=== PATIENT | female | born 1970 | race Caucasian/White ===

== ENCOUNTER 2025-04-21 10:07 | Emergency (ER) | payer MEDICAID, SELFPAY ==
[2025-04-21] VITALS (13 sets, daily range): BP systolic 130–224; BP diastolic 84–125; PULSE 71–107; RESP 9–26; TEMP 36.7–36.8; O2SAT 96–100; BMI 28.3
--- NOTE | 2025-04-21 10:10 | ECG_ITS ---
APPROVED REPORT Exam: Resting ECG HR:98 bpm ECG Measurements Heart Rate 98 AXES MA 174 P 81 QRSd 88 QRS 70 QT 338 T 61 QTc 393 Conclusion SINUS RHYTHM POSSIBLE RIGHT ATRIAL ENLARGEMENT [0.25mV P-WAVE] NONSPECIFIC T-WAVE ABNORMALITY BORDERLINE ECG No STEMI Electronically signed by : NORMA FRAUSTO, 04/22/2025 06:39:01
--- NOTE | 2025-04-21 10:14 | XR_ITS ---
FINAL REPORT CLINICAL HISTORY: SOA and CP FINDINGS: SINGLE VIEW CHEST The heart is normal in size. Lordotic positioning was obtained. The mediastinum is unremarkable. The lungs are clear. There is no pneumothorax. IMPRESSION: No acute process. Reviewed, Interpreted and Dictated by Dario Nowak MD Transcribed by Genesis Lares Authenticated and [facility]
--- NOTE | 2025-04-21 10:19 | ED_ITS ---
<Statement entered by Kwan Benavidez MD - 04/21/25 15:45> On repeat interview with this patient she reported that she felt confident the source of her pain was her left shoulder. She endorsed no chest pain, no neck stiffness, no headache, no infectious symptoms. She had minimal pain with palpation of the shoulder but significant pain with range of motion of the left shoulder. Range of motion of the left shoulder elicited notable crepitus. Patient reported a long history of reduced range of motion of the shoulder. Given the largely negative laboratory and imaging workup I think it is most likely the patient is suffering from osteoarthritis and mild adhesive capsulitis. We feel comfortable with discharge to follow-up with orthopedic surgery and additionally we provided a referral for a new primary care provider. Review of the patient's laboratory results shows pseudohyponatremia, and hyperglycemia. The patient is currently an insulin-dependent diabetic and has not been able to see her primary care provider in several months. The patient said that she felt comfortable with her ability to establish with a new primary care provider and verbalized understanding of return precautions. I consulted the BRANDI, and we discussed the complexity of the problems being addressed. I approved the treatment and management plan for this patient's care in the emergency department, thus performing a substantial portion of the medical decision making. Will MD Reema Discharge Plan Disposition Patient Disposition: Home, Self-Care Condition: Good Prescriptions Prescriptions: No Action No Known Home Medications Referrals Follow up/Referrals: ProviderAnju MD [Referring, Medical] - See instructions Shyam Luu MD [Staff Physician, Cardiology] - See instructions Kwame Castro APRN [Primary Care Provider, Medical] - See instructions Activity Restrictions/Add. Instructions Additional Instructions/Restrictions: Please return to the emergency department with any worsening signs or symptoms, please follow-up with your PCP and electro mechanical engineer in the upcoming days/weeks. Please continue take all medication as prescribed. Clinical Impressions Clinical Impression: Atypical chest pain Instructions Patient Instructions: DI for Atypical Chest Pain, DI for Chest Pain Print Language Print Language: Gibralt[place] Discharge ED Provider: Kwan Benavidez [facility] General Chief Complaint: Chest Pain Stated Complaint: CP Time Seen by Provider: 04/21/25 10:08 Mode of Arrival: Ambulatory Source of Information: Patient Description of Symptoms (Recalled from ER Triage Doc. by RN): Patient states about 0800 this morning she started having pain in her chest, neck and back. Patient states that she took 3x 325 mg aspirin when the pain started. Denies any previous cardiac problems. History of Present Illness HPI narrative: 55-year-old female presents the emergency department with chest pain that is located right substernally, with some radiation into the back and down the right arm, and extension up into the neck , the start around 8 AM this morning, currently a 5 out of 10, and at maximal was a 5 out of 10 this morning, patient claims she took times three 325 mg p.o. aspirin with little to no relief of her symptomatology, she denies any fever chills injury or trauma per history, admits to some shortness of breath, denies any nausea vomiting constipation diarrhea no real abdominal pain, no urinary type symptomatology, no constipation diarrhea, no melena hematochezia no hematemesis, initial triage vitals are notable for hypertensive blood pressure at over 200 systolic, as well as tachycardia to 107 bpm, SpO2 within normal limits, patient is a current everyday smoker, denies any other alcohol drug use, patient has no other real relevant past medical history takes no other medications at home, has remote history of what sounds like trauma as a child where she sustained a liver laceration and underwent multiple surgeries, patient was previously on metoprolol, however she states that she is unsure , while she was on this medication, however she is no longer taking this medication. Please note that above description of symptoms, in this electronic medical record under categorization of recalled from ER triage doctor by RN are reflective of an initial nursing assessment, however, is not reflective of my full history and physical exam that was personally taken and clarified. Consequentially, this preceding description of symptoms, which may include the patient's categorized chief complaint in the EMR, do not reflect my personal clinical impression, and the ultimate description of history of present illness and patient stated complaints should be deferred to this section of the note. Unless stated otherwise or congruent with this section of the note, additional signs, symptoms, or incongruence should be interpreted as inaccurate with my clinical impression. Related Data Home Medications ?Medication ?Instructions ?Recorded ?Confirmed No Known Home Medications 01/22/1806/03 Allergies Allergy/AdvReac Type Severity Reaction Status Date / Time No Known Allergies Allergy Verified 04/21/25 10:16 [facility] Disclaimer: The information contained in this section may have been updated after the patient was seen, as this information can be updated by other users. Social History Smoking Status: Current every day smoker alcohol intake: never current occupational status: other Travel in the last 8 weeks?: None ROS Obtained: Yes All systems reviewed & no additional complaints except as documented Physical Exam General General appearance: alert and in no apparent distress Head Head exam: atraumatic and normocephalic Eye Eye exam: Present normal appearance, PERRL and EOMI Neck Neck exam: Present full ROM; Absent meningismus Chest Chest inspection: Present normal inspection Respiratory Respiratory exam: Absent respiratory distress, wheezes, stridor, accessory muscle use or prolonged expiratory phase Cardiovascular Cardiovascular exam: Present normal rhythm, tachycardia and other (Pulses equal and symmetric in bilateral upper and lower extremities) Abdominal Exam Abdominal exam: Absent distention, tenderness, guarding or rebound Extremities Exam Extremities exam: Absent edema Neurological Exam Neurological exam: Present alert Psychiatric Psychiatric exam: Present normal affect Skin Skin exam: Present warm and dry HEART Score HEART Score HEART Score assessment performed?: Yes HEART Score: 2 Critical Care Critical Care Time Critical Care Time: No Medical Decision Making Medical Records Medical records reviewed: Yes I reviewed the patient's medical records. Bryan Inquiry Pt receiving controlled substance: Yes Bryan was queried for this patient: No Reason not queried -: Emergent pt cond-no time Risks and benefits of using a controlled substance: were discussed with pt by me Vital Signs Vital Signs: 04/21/25 10:09 04/21/25 10:15 04/21/25 10:33 Temperature 98.2 F Temperature Source Oral Pulse Rate 88 92 H Pulse Rate [Right Brachial] 107 H Respiratory Rate 18 Blood Pressure 206/114 H 207/120 H Blood Pressure [Right Arm] 224/124 H Blood Pressure Mean [Right Arm] 157 Blood Pressure Source [Right Arm] Automatic Cuff Blood Pressure Position [Right Arm] Sitting 02 Sat by Pulse Oximetry 98 99 98 Oxygen Delivery Method Room Air 04/21/25 10:35 04/21/25 10:38 04/21/25 10:45 Temperature Temperature Source Pulse Rate 94 H 100 H Pulse Rate [Right Brachial] Respiratory Rate 26 H 9 L Blood Pressure 192/125 H 179/104 H 177/104 H Blood Pressure [Right Arm] Blood Pressure Mean [Right Arm] Blood Pressure Source [Right Arm] Blood Pressure Position [Right Arm] 02 Sat by Pulse Oximetry 99 96 Oxygen Delivery Method 04/21/25 11:15 04/21/25 11:30 04/21/25 11:45 Temperature Temperature Source Pulse Rate 71 Pulse Rate [Right Brachial] Respiratory Rate 12 12 12 Blood Pressure 178/101 H 166/102 H 163/90 H Blood Pressure [Right Arm] Blood Pressure Mean [Right Arm] Blood Pressure Source [Right Arm] Blood Pressure Position [Right Arm] 02 Sat by Pulse Oximetry 100 Oxygen Delivery Method 04/21/25 12:00 04/21/25 12:15 04/21/25 12:30 Temperature Temperature Source Pulse Rate 71 Pulse Rate [Right Brachial] Respiratory Rate 15 12 13 Blood Pressure 168/101 H 156/89 H 168/102 H Blood Pressure [Right Arm] Blood Pressure Mean [Right Arm] Blood Pressure Source [Right Arm] Blood Pressure Position [Right Arm] 02 Sat by Pulse Oximetry 98 Oxygen Delivery Method Lab Data Lab results reviewed: Yes I reviewed the patient's lab results. Labs: Lab Results 04/21/25 10:12: WBC 9.4, RBC 5.31, Hgb 15.8, Hct 47.7 H, MCV 89.8, MCH 29.8, MCHC 33.1, RDW 13.2, Plt Count 397, MPV 9.0, Neut % (Auto) 63.5, Lymph % (Auto) 25.7, Baxter % (Auto) 6.9, Eos % (Auto) 2.7, Baso % (Auto) 0.8, Neut # (Auto) 6.0, Lymph # (Auto) 2.4, Baxter # (Auto) 0.7, Eos # (Auto) 0.3, Baso # (Auto) 0.1, PT 10.1, INR 0.90, Sodium 139, Potassium 4.3, Chloride 104, Carbon Dioxide 25, Anion Gap 14.3, BUN 13, Creatinine 0.80, Estimated Creat Clear 93, Estimated GFR 74, Est GFR ( Amer) 90, Glucose 99, Calcium 10.1, Magnesium 2.3, Total Bilirubin 0.4, AST 33, ALT 16, Alkaline Phosphatase 79, Troponin I < 0.01, N T-Pro-B Natriuret Pep 650 H, Total Protein 8.6 H, Albumin 4.9, Globulin 3.7 H, Albumin/Globulin Ratio 1.3, Lipase 117, HCV Ab IONA w/Rflx PCR Qn Negative, HIV Ag/Ab Combo Qual Negative 04/21/25 13:05: Troponin I < 0.01 04/21/25 10:12 04/21/25 10:12 Response Orders (Tests/Meds): ED MEDICATIONS Generic Name Dose Route Start Last Admin Trade Name Freq PRN Reason Stop Dose Admin Nitroglycerin 0.4 mg 04/21/25 10:18 04/21/25 10:33 Nitroglycerin 0.4mg Sl Tablet SL 05/21/25 10:17 0.4 mg Q5MINP PRN Administration Chest Pain Discontinued Medications Generic Name Dose Route Start Last Admin Trade Name Freq PRN Reason Stop Dose Admin Iopamidol 80 ml 04/21/25 11:02 04/21/25 11:03 Iopamidol-370 (76%);100ml Bottle IV 04/21/25 11:03 80 ml ONCE ONE Administration Morphine Sulfate 4 mg 04/21/25 10:18 04/21/25 10:40 Morphine 4mg/Ml Syringe IV 04/21/25 10:19 4 mg ONCE ONE Administration Ondansetron HCl 4 mg 04/21/25 10:18 04/21/25 10:34 Ondansetron 4mg/2ml Vial IV 04/21/25 10:19 4 mg ONCE ONE Administration Sodium Chloride 50 ml 04/21/25 11:02 04/21/25 11:03 0.9 % Sodium Chloride 50 Ml Vial IV 04/21/25 11:03 50 ml ONCE ONE Administration Sodium Chloride 10 ml 04/21/25 11:02 04/21/25 11:03 Sodium Chloride 0.9% 10ml Syr (Rad Only) IV 04/21/25 11:03 10 ml ONCE ONE Administration ORDERS Category Date Time Status CTA Chest [CT angio chest - dissection] Stat Cat Scan 04/21/25 10:26 Completed XR chest portable Stat Exams 04/21/25 10:14 Completed Complete Blood Count Auto Diff Stat Lab 04/21/25 10:12 Completed Comprehensive Metabolic Panel Stat Lab 04/21/25 10:12 Completed HIV Combo Stat Lab 04/21/25 10:12 Completed Hepatitis C Ab Qual. W/ RFX Stat Lab 04/21/25 10:12 Completed Lipase Stat Lab 04/21/25 10:12 Completed Magnesium Stat Lab 04/21/25 10:12 Completed NT Pro Brain Natriuretic Pep. Stat Lab 04/21/25 10:12 Completed PT INR [Prothrombin Time INR] Stat Lab 04/21/25 10:12 Completed Troponin I Q3H Lab 04/21/25 13:05 Completed Troponin I Q3H Lab 04/21/25 16:15 Ordered Troponin I Stat Lab 04/21/25 10:12 Completed MDM Narrative Medical Decision Narrative: 55-year-old female presents emergency department with chest pain, differential diagnose include but not limited to, PE, aortic dissection, cardiac arrhythmia, electrolyte disturbance, ACS, costochondritis, panic attack, anxiety reaction, pneumothorax among others. I discussed this patient's case with the attending physician Dr. Benavidez he saw and examined the patient as well. Will obtain basic laboratory studies, proBNP, PT/INR, troponin, EKG, CXR, will give 0.4 sublingual nitroglycerin, lipase, will give 4 mg IV morphine and 4 mg Zofran for pain and nausea, will obtain CTA chest with without contrast. I reviewed the patient's chest x-ray along with corresponding radiologic report, no acute process. CBC is unremarkable CMP is unremarkable, initial troponin is less than 0.01, proBNP is mildly elevated at 650. Coags within normal limits Lipase within normal limits I reviewed the patient's CTA chest with and without contrast along with the corresponding radiologic report, no evidence for PE or dissection on this exam, mild changes of central lobar emphysema. Repeat troponin is within normal limits at less than 0.01, repeat examination of the patient at approximately 1:45 PM, patient states she is currently chest pain-free, hemodynamically she has improved, blood pressures improved to within normal limits, no tachycardia, no tachypnea, heart score of 2, patient is clear to be discharged home to self-care, cardiology and PCP follow-up, patient states she has PCP follow-up next Saturday advised her to keep this appointment, continue take all medication as prescribed. Patient voiced understanding and agreement Contreet plan/discharge plan. Strict ED return precaution were given.
[2025-04-21 10:22] LABS: Hematocrit 47.7 % (37.0-47.0); Hemoglobin 15.8 g/dL (12.2-16.2); Immature Granulocytes % 0.4 %; Mean Corpuscular HGB Conc 33.1 g/dL (31.8-35.4); Mean Corpuscular Hemoglobin 29.8 pg (27.0-31.2); Mean Corpuscular Volume 89.8 fl (81-99); Nucleated Red Blood Cells % 0 %; Platelet Count 397 K/mm3 (142-424); Red Blood Count 5.31 M/mm3 (4.20-5.40); Red Cell Distribution Width-SD 43.6 fL; White Blood Count 9.4 K/mm3 (4.8-10.8)
--- NOTE | 2025-04-21 10:26 | CT_ITS ---
FINAL REPORT TECHNIQUE: Postcontrast axial images of the chest were performed in a CTA protocol. This study was performed with techniques to keep radiation doses as low as reasonably achievable, (ALARA). Individualized dose reduction technique using automated exposure control or adjustment of mA and/or kV according to the patient's size were employed. CLINICAL HISTORY: Hypertension, chest pain rating to the back FINDINGS: The heart is normal in size. No adenopathy is identified. No pleural or pericardial effusion is identified. The thoracic aorta is normal in caliber with no focal aneurysm or dissection identified. There is no filling defect to suggest pulmonary embolism. There are mild changes of centrilobular emphysema. No lung infiltrate or mass is identified. The images of the upper abdomen are unremarkable. A cystic structure is noted in the medial right breast measuring 1.8 cm in diameter, likely benign. IMPRESSION: No evidence for PE or dissection on this exam. Mild changes of centrilobular emphysema. Reviewed, Interpreted and Dictated by Dario Nowak MD Transcribed by Lisset Boyle Authenticated and [facility]
[2025-04-21 10:33] LABS: Alanine Aminotransferase 16 U/L (12-78); Albumin Level 4.9 g/dl (3.5-5.0); Albumin/Globulin Ratio 1.3 (1.1-1.8); Alkaline Phosphatase 79 U/L (38-126); Anion Gap 14.3 mEq/L (5-15); Aspartate Amino Transferase 33 U/L (14-36); Bilirubin,Total 0.4 mg/dl (0.2-1.3); Blood Urea Nitrogen 13 mg/dl (7-17); Calcium 10.1 mg/dl (8.4-10.2); Carbon Dioxide 25 mmol/L (22.0-30.0); Chloride 104 mmol/L (98-107); Creatinine Clearance Estimated 93 mL/min (50-200); Creatinine,Serum 0.80 mg/dl (0.52-1.04); Estimated Glomerular Filt Rate 74 ml/min (>60); GFR (African American) 90 ML/MIN (>60); Globulin 3.7 g/dL (1.3-3.2); Glucose 99 mg/dl (74-100); Potassium 4.3 mmoL/L (3.5-5.1); Sodium 139 mmol/L (136-145); Total Protein,Serum 8.6 g/dl (6.3-8.2)
[2025-04-21] MEDS: NITROGLYCERIN 0.4MG SL TABLET 0.4 MG SL (10:33)
[2025-04-21 10:34] LABS: Magnesium 2.3 mg/dl (1.6-2.3)
[2025-04-21] MEDS: ONDANSETRON 4MG/2ML VIAL 4 MG IV (10:34)
[2025-04-21] MEDS: MORPHINE 4MG/ML SYRINGE 4 MG IV (10:40)
[2025-04-21 10:44] LABS: NT Pro Brain Natriuretic Pep. 650 pg/mL (0-125)
[2025-04-21 10:51] LABS: INR 0.90 (0.9-1.1); Prothrombin Time 10.1 seconds (10.1-12.5); Troponin I < 0.01 ng/ml (0.00-0.034)
[2025-04-21] MEDS: IOPAMIDOL-370 (76%);100ML BOTTLE 80 ML IV (11:03)
[2025-04-21] MEDS: SODIUM CHLORIDE 0.9% 10ML SYR (RAD ONLY) 10 ML IV (11:03)
[2025-04-21] MEDS: 0.9 % SODIUM CHLORIDE 50 ML VIAL IV (11:03)
[2025-04-21 11:07] LABS: Lipase 117 U/L (23-300)
[2025-04-21 11:33] LABS: Hepatitis C Ab Qual. W/ RFX NEGATIVE (Negative)
[2025-04-21 13:47] LABS: Troponin I < 0.01 ng/ml (0.00-0.034)
== END 2025-04-21 14:12 | disposition home or self-care (01) ==
PROVIDERS: Physician Assistant; Emergency Provider Student in an Organized Health Care Education/Training Program; PCP Nurse Practitioner Family
DX: R07.89 Other chest pain (principal); F17.210 Nicotine dependence, cigarettes, uncomplicated
CPT/HCPCS: 71045; 71275; 80053; 83690; 83735; 83880; 84484; 85025; 85610; 86803; 87389; 93005; 96374; 96375; 99285; J2270; J2405; Q9967

== ENCOUNTER 2025-04-26 09:38 | Emergency (ER) | payer MEDICAID, SELFPAY ==
[2025-04-26] VITALS (10 sets, daily range): BP systolic 144–222; BP diastolic 85–107; PULSE 71–105; RESP 14–18; TEMP 36.7–36.8; O2SAT 99; BMI 28.3
--- NOTE | 2025-04-26 | ECG_ITS ---
APPROVED REPORT Exam: Resting ECG HR:89 bpm ECG Measurements Heart Rate 89 AXES MD 169 P 79 QRSd 88 QRS 71 QT 334 T 41 QTc 381 Conclusion SINUS RHYTHM POSSIBLE RIGHT ATRIAL ENLARGEMENT [0.25mV P-WAVE] NONSPECIFIC T-WAVE ABNORMALITY BORDERLINE ECG UNCONFIRMED REPORT Electronically signed by : GAGE GUZMAN, 04/26/2025 23:45:11
--- NOTE | 2025-04-26 09:48 | PC.NURSE ---
DR KHAN AT BEDSIDE
--- NOTE | 2025-04-26 09:53 | CT_ITS ---
FINAL REPORT TECHNIQUE: Postcontrast axial images of the chest were performed in a CTA protocol. This study was performed with techniques to keep radiation doses as low as reasonably achievable, (ALARA). Individualized dose reduction technique using automated exposure control or adjustment of mA and/or kV according to the patient's size were employed. CLINICAL HISTORY: HTN, chest pain, right arm tingling COMPARISON: 04/21/2025 FINDINGS: The heart is normal in size. No adenopathy is identified. No pleural or pericardial effusion is identified. The thoracic aorta is normal in caliber with no focal aneurysm or dissection identified. There is no filling defect to suggest pulmonary embolism. No lung infiltrate or mass is identified. There are changes of emphysema. A cystic mass is seen in the right upper chest wall which is likely a sebaceous cyst, similar to prior exam. The images of the upper abdomen are unremarkable. IMPRESSION: No evidence for PE on this exam. Changes of emphysema. Reviewed, Interpreted and Dictated by Conner Patel MD Transcribed by Lisset Boyle Authenticated and [facility]
--- NOTE | 2025-04-26 09:53 | CT_ITS ---
FINAL REPORT TECHNIQUE: Noncontrast exam This study was performed with techniques to keep radiation doses as low as reasonably achievable, (ALARA). Individualized dose reduction techniques using automated exposure control or adjustment of mA and/or kV according to the patient''s size were employed. CLINICAL HISTORY: Right arm tingling, headache, HTN FINDINGS: No abnormal density is seen. Ventricles are normal. There is no hemorrhage. No mass effect is seen. Bone windows show no evidence of fracture. IMPRESSION: No acute findings Reviewed, Interpreted and Dictated by Conner Patel MD Transcribed by Lisset Boyle Authenticated and . [facility]
--- NOTE | 2025-04-26 09:53 | CT_ITS ---
FINAL REPORT CLINICAL HISTORY: Right arm tingling, headache, HTN FINDINGS: CTA NECK Thin section axial CT with contrast with multiplanar reconstruction NASCET criteria and technique was utilized during interpretation. Aortic arch: Arch shows no significant narrowing. Great vessel origins are widely patent . There is mild calcified plaque at the carotid bifurcations bilaterally. Right carotid: No significant stenosis is seen of the cervical common or internal carotid artery . Left carotid: No significant stenosis is seen of the cervical common or internal carotid artery . Vertebrals: Vertebral arteries are codominant.. No significant stenosis is present . IMPRESSION: No significant stenosis or occlusion. Reviewed, Interpreted and Dictated by Conner Patel MD Transcribed by Lisset Boyle Authenticated and [facility]
--- NOTE | 2025-04-26 09:53 | CT_ITS ---
FINAL REPORT CLINICAL HISTORY: Right arm tingling, headache, HTN FINDINGS: CTA HEAD TECHNIQUE: Thin section axial CT with contrast with 3D MIP reconstruction This study was performed with techniques to keep radiation doses as low as reasonably achievable, (ALARA). Individualized dose reduction techniques using automated exposure control or adjustment of mA and/or kV according to the patient''s size were employed. FINDINGS: No aneurysm is seen. Major intracranial vessels are patent without significant stenosis. . There is persistent origin of the left HANGER OFF. IMPRESSION: Unremarkable Reviewed, Interpreted and Dictated by Conner Patel MD Transcribed by Lisset Boyle Authenticated and [facility]
[2025-04-26 10:00] LABS: Hematocrit 45.6 % (37.0-47.0); Hemoglobin 15.2 g/dL (12.2-16.2); Immature Granulocytes % 0.3 %; Mean Corpuscular HGB Conc 33.3 g/dL (31.8-35.4); Mean Corpuscular Hemoglobin 30.1 pg (27.0-31.2); Mean Corpuscular Volume 90.3 fl (81-99); Nucleated Red Blood Cells % 0 %; Platelet Count 385 K/mm3 (142-424); Red Blood Count 5.05 M/mm3 (4.20-5.40); Red Cell Distribution Width-SD 44.2 fL; White Blood Count 7.7 K/mm3 (4.8-10.8)
[2025-04-26] MEDS: LABETALOL 20MG/4ML SYRINGE 20 MG IV (10:04)
[2025-04-26 10:06] LABS: Albumin Level 4.6 g/dl (3.5-5.0); Chloride 102 mmol/L (98-107); Potassium 4.0 mmoL/L (3.5-5.1); Sodium 138 mmol/L (136-145)
--- NOTE | 2025-04-26 10:06 | HMH.EDGENADL ---
Discharge Plan Disposition Patient Disposition: Home, Self-Care Prescriptions Prescriptions: No Action No Known Home Medications Referrals Follow up/Referrals: Kwame Castro APRN [Primary Care Provider, Medical] - See instructions Activity Restrictions/Add. Instructions Additional Instructions/Restrictions: You have an appointment at [address] Olivarez's office. Please attend this appointment is important for you to get started on blood pressure medication to control your blood pressure better. If your blood pressure continues to remain elevated, you are at increased risk of strokes and heart attacks. If you develop any new or worsening symptoms, or if you become concerned for your health for any reason, return to the emergency department for evaluation. Clinical Impressions Clinical Impression: Hypertension, Tingling of right upper extremity, Headache Print Language Print Language: Chinese Discharge ED Provider: Fred Chowdary Adult HPI General Chief complaint: Headache Stated complaint: arm tingling, BP 199/122 Time Seen by Provider: 04/26/25 09:45 Mode of Arrival: Ambulatory Source of Information: Patient Description of Symptoms (Recalled from ER Triage Doc. by RN): PT REPORTS ELEVATED BLOOD PRESSURE THIS AM. WOKE WITH RIGHT ARM TINGLING AND SLIGHT HEADACHE. RECENT ED VISIT FOR ELEVATED BP AND CHEST PAIN. HAD APPT AT 1000 TO FOLLOW-UP AND DISCUSS MEDS. History of Present Illness HPI narrative: Lamar Warren is a 55-year-old female with previously diagnosed hypertension, not currently on medications, who presents to the emergency department for complaints of right arm tingling, headache and intermittent chest tightness. Patient states over last week, she has had these symptoms. She describes headache as along the right side of her head and down into her right neck. She states that her entire right arm is tingling. She states that her blood pressure was elevated when she was evaluated here on the sixth and she was supposed to establish care with her primary care physician at 10:00 this morning, however she continued to have symptoms and had blood pressures continually elevated at over 200 systolic and was instructed to come to the emergency department for management. She denies any current chest pain. She states that she has been taking daily aspirin's. She denies any abdominal pain, vomiting. She states that she is otherwise healthy. She does smoke cigarettes. She states that she was previously on metoprolol for high blood pressure, however is not seen a doctor since the COVID pandemic and has not been taking any medications for it since then. Related Data Home Medications ?Medication ?Instructions ?Recorded ?Confirmed No Known Home Medications 01/22/18 04/26/25 Allergies Allergy/AdvReac Type Severity Reaction Status Date / Time No Known Allergies Allergy Verified 04/21/25 10:16 [facility] Disclaimer: The information contained in this section may have been updated after the patient was seen, as this information can be updated by other users. Social History (Updated 04/21/25 @ 13:53 by EDDIE Bauer) Smoking Status: Current every day smoker alcohol intake: never current occupational status: other Travel in the last 8 weeks?: None ROS Obtained: Yes Systems reviewed as appropriate & no additional complaints except as documented Physical Exam General General appearance: alert, in no apparent distress and anxious Head Head exam: atraumatic Eye Eye exam: Present normal appearance and PERRL ENT ENT exam: Present normal external ear exam Neck Neck exam: Present full ROM Chest Chest inspection: Present symmetric chest wall rise Respiratory Respiratory exam: Present normal lung sounds bilaterally; Absent respiratory distress, wheezes or stridor Cardiovascular Cardiovascular exam: Present regular rate and normal rhythm Abdominal Exam Abdominal exam: Present soft; Absent distention, tenderness or guarding Extremities Exam Extremities exam: Present normal inspection and other (2+ bounding radial pulses bilaterally) Back Exam Back exam: Present normal inspection Neurological Exam Neurological exam: Present alert, oriented X3, CN II-XII intact and other (Full strength and sensation to bilateral upper extremities.); Absent motor sensory deficit Psychiatric Psychiatric exam: Present normal affect Skin Skin exam: Present warm and dry Medical Decision Making Medical Records Screening: Per USPSTF and CDC recommendations, given the prevalence of disease in our region, it is our hospital?s policy to screen for HIV and viral Hepatitis for all patients aged 18 and over and those with ongoing risk factors. Bryan Inquiry Pt receiving controlled substance: No Vital Signs: 04/26/25 09:39 04/26/25 09:58 04/26/25 10:00 Temperature 98.3 F Temperature Source Oral Pulse Rate Pulse Rate [Apical] 105 H Respiratory Rate 18 Blood Pressure 178/101 H 198/107 H Blood Pressure [Right Arm] 222/88 H Blood Pressure Mean 140 136 Blood Pressure Mean [Right Arm] 132 Blood Pressure Source [Right Arm] Manual Cuff/ Auscultation Blood Pressure Position [Right Arm] Sitting 02 Sat by Pulse Oximetry 99 Oxygen Delivery Method Room Air 04/26/25 10:04 04/26/25 10:10 04/26/25 10:43 Temperature Temperature Source Pulse Rate 79 Pulse Rate [Apical] Respiratory Rate 14 Blood Pressure 198/107 H 173/99 H 187/101 H Blood Pressure [Right Arm] Blood Pressure Mean 134 Blood Pressure Mean [Right Arm] Blood Pressure Source [Right Arm] Blood Pressure Position [Right Arm] 02 Sat by Pulse Oximetry 99 Oxygen Delivery Method 04/26/25 11:01 04/26/25 11:31 Temperature Temperature Source Pulse Rate 71 72 Pulse Rate [Apical] Respiratory Rate 14 16 Blood Pressure 162/91 H 157/85 H Blood Pressure [Right Arm] Blood Pressure Mean Blood Pressure Mean [Right Arm] Blood Pressure Source [Right Arm] Blood Pressure Position [Right Arm] 02 Sat by Pulse Oximetry 99 99 Oxygen Delivery Method Lab Data Lab Results 04/26/25 09:46: WBC 7.7, RBC 5.05, Hgb 15.2, Hct 45.6, MCV 90.3, MCH 30.1, MCHC 33.3, RDW 13.3, Plt Count 385, MPV 8.9, Neut % (Auto) 61.0, Lymph % (Auto) 26.8, Glades % (Auto) 7.9, Eos % (Auto) 3.3, Baso % (Auto) 0.7, Neut # (Auto) 4.7, Lymph # (Auto) 2.1, Glades # (Auto) 0.6, Eos # (Auto) 0.3, Baso # (Auto) 0.1, Sodium 138, Potassium 4.0, Chloride 102, Carbon Dioxide 29, Anion Gap 11.0, BUN 15, Creatinine 0.80, Estimated Creat Clear 93, Estimated GFR 74, Est GFR ( Amer) 90, Glucose 95, Calcium 9.4, Total Bilirubin 0.6, AST 30, ALT 15, Alkaline Phosphatase 78, Troponin I < 0.01, NT-Pro-B Natriuret Pep 599 H, Total Protein 7.9, Albumin 4.6, Globulin 3.3 H, Albumin/Globulin Ratio 1.4, TSH 3.15, Free T4 1.35 04/26/25 10:40: Urine Color Yellow, Urine Appearance Clear, Urine pH 7.5, Ur Specific Bowbells 1.010, Urine Protein Negative, Urine Glucose (UA) Negative, Urine Ketones Negative, Urine Blood Negative, Urine Nitrate Negative, Urine Bilirubin Negative, Urine Urobilinogen 0.2, Ur Leukocyte Esterase Negative, Urine RBC None, Urine WBC None, Ur Squamous Epith Cells None, Urine Bacteria None 04/26/25 11:42: Troponin I < 0.01 04/26/25 09:46 04/26/25 09:46 Orders (Tests/Meds): ED MEDICATIONS Generic Name Dose Route Start Last Admin Trade Name Freq PRN Reason Stop Dose Admin Sodium Chloride 10 ml 04/26/25 10:36 04/26/25 10:38 Sodium Chloride 0.9% 10ml Syr (Rad Only) IV 05/26/25 10:35 10 ml NEEDED PRN Administration Maintain IV Site Discontinued Medications Generic Name Dose Route Start Last Admin Trade Name Freq PRN Reason Stop Dose Admin Iopamidol 160 ml 04/26/25 10:36 04/26/25 10:37 Iopamidol-370 (76%);100ml Bottle IV 04/26/25 10:37 160 ml ONCE ONE Administration Labetalol HCl 20 mg 04/26/25 10:15 04/26/25 10:04 Labetalol 20mg/4ml Syringe IV 04/26/25 10:16 20 mg ONCE ONE Administration Sodium Chloride 50 ml 04/26/25 10:36 04/26/25 10:37 0.9 % Sodium Chloride 50 Ml Vial IV 04/26/25 10:37 50 ml ONCE ONE Administration ORDERS Category Date Time Status CT angio chest - dissection Stat Cat Scan 04/26/25 09:[address] angio head Stat Cat Scan 04/26/25 09:[address] angio neck Stat Cat Scan 04/26/25 09:[address] head/brain wo con Stat Cat Scan 04/26/25 09:53 Completed BNP [NT Pro Brain Natriuretic Pep.] Stat Lab 04/26/25 09:46 Completed CBC w/Auto Diff [Complete Blood Count Auto Diff] Stat Lab 04/26/25 09:46 Completed CMP [Comprehensive Metabolic Panel] Stat Lab 04/26/25 09:46 Completed Free T4 (Free Thyroxine) Stat Lab 04/26/25 09:46 Completed TSH [Thyroid Stimulating Hormone] Stat Lab 04/26/25 09:46 Completed Troponin I Q3H Lab 04/26/25 11:42 Completed Troponin I Q3H Lab 04/26/25 16:00 Ordered Troponin I Stat Lab 04/26/25 09:46 Completed UA [Urinalysis and Microscopic] Stat Lab 04/26/25 10:40 Completed ECG Data Tracing #1: I reviewed this ECG and interpreted as documented below: Normal sinus rhythm. No ST elevation or depression Medical Decision Narrative: Lamar Warren is a 55-year-old female with previously diagnosed hypertension, not currently on medications, who presents to the emergency department for complaints of right arm tingling, headache and intermittent chest tightness. Patient states over last week, she has had these symptoms. She describes headache as along the right side of her head and down into her right neck. She states that her entire right arm is tingling. She states that her blood pressure was elevated when she was evaluated here on the sixth and she was supposed to establish care with her primary care physician at 10:00 this morning, however she continued to have symptoms and had blood pressures continually elevated at over 200 systolic and was instructed to come to the emergency department for management. She denies any current chest pain. She states that she has been taking daily aspirin's. She denies any abdominal pain, vomiting. She states that she is otherwise healthy. She does smoke cigarettes. She states that she was previously on metoprolol for high blood pressure, however is not seen a doctor since the COVID pandemic and has not been taking any medications for it since then. On arrival, patient is initially hypertensive with blood pressure 222/88, mildly tachycardic with a heart rate of 105, oxygen saturation 99% on room air. Afebrile. Physical exam, as stated above, revealed an anxious female in no distress. Nonfocal neuroexam. Cardiopulmonary exam is unremarkable. She does have bounding but equal bilateral radial pulses. Abdomen is soft, nontender nondistended. She does not appear edematous. Differential diagnosis includes, but is not limited to: Hypertensive emergency, ACS, aortic dissection, aortic aneurysm, stroke, uncontrolled hypertension, metabolic derangement, electrolyte derangement, among others. The most morbid conditions were considered and workup was based on these. Workup in the emergency department included: CTA chest dissection protocol, CTA head and neck, CT head without contrast, CBC, CMP, troponin, BNP, TSH, free T4, urinalysis, EKG. Patient was administered 20 mg of IV labetalol. EKG without evidence of ischemia. See interpretation above. Laboratory studies interpreted by me personally. No hematuria or other concerning findings on urinalysis. No acute findings. CT imaging also interpreted by me personally. No pulmonary embolism or aortic dissection or aneurysm. No other findings within CT of the chest. No significant stenosis, large vessel occlusion, aneurysm or dissection of the vessels of the neck or head. See final radiology report for details. After 20 mg of IV labetalol, patient's blood pressure is improved to 144/90. Heart rate remains stable. Given improvement in her blood pressure and symptoms, will try to arrange follow-up today with her primary care physician as she would likely need to be started on antihypertensive medications. We attempted to schedule an appointment today with Kwame's [facility] office, however they have no availabilities today. We reach out to Dr. Olivarez's office and will be following up with AISLINN Perez this afternoon at 1 PM. This was discussed with the patient and she was in agreement with this plan. Return precautions were given. All questions were answered. She was then discharged from the emergency department in stable condition. Critical Care Critical Care Time Critical Care Time: No
[2025-04-26 10:09] LABS: Alanine Aminotransferase 15 U/L (12-78); Albumin/Globulin Ratio 1.4 (1.1-1.8); Alkaline Phosphatase 78 U/L (38-126); Anion Gap 11.0 mEq/L (5-15); Aspartate Amino Transferase 30 U/L (14-36); Bilirubin,Total 0.6 mg/dl (0.2-1.3); Blood Urea Nitrogen 15 mg/dl (7-17); Calcium 9.4 mg/dl (8.4-10.2); Carbon Dioxide 29 mmol/L (22.0-30.0); Creatinine Clearance Estimated 93 mL/min (50-200); Creatinine,Serum 0.80 mg/dl (0.52-1.04); Estimated Glomerular Filt Rate 74 ml/min (>60); GFR (African American) 90 ML/MIN (>60); Globulin 3.3 g/dL (1.3-3.2); Glucose 95 mg/dl (74-100); Total Protein,Serum 7.9 g/dl (6.3-8.2)
[2025-04-26 10:19] LABS: NT Pro Brain Natriuretic Pep. 599 pg/mL (0-125)
--- NOTE | 2025-04-26 10:19 | PC.NURSE ---
PT TO CT
[2025-04-26 10:29] LABS: Troponin I < 0.01 ng/ml (0.00-0.034)
[2025-04-26] MEDS: IOPAMIDOL-370 (76%);100ML BOTTLE 160 ML IV (10:37)
[2025-04-26] MEDS: 0.9 % SODIUM CHLORIDE 50 ML VIAL IV (10:37)
[2025-04-26] MEDS: SODIUM CHLORIDE 0.9% 10ML SYR (RAD ONLY) 10 ML IV (10:38)
[2025-04-26 10:40] LABS: Thyroid Stimulating Hormone 3.15 uIU/mL (0.465-4.68)
[2025-04-26 10:42] LABS: Free T4 (Free Thyroxine) 1.35 ng/dl (0.78-2.19)
[2025-04-26 10:48] LABS: Microscopic, Urine URINE MICROSCOPIC (MICROSCOPIC)
[2025-04-26 10:54] LABS: Bilirubin,Urine Negative (Negative); Color,Urine YELLOW (Yellow); Glucose,Urine (UA) Negative (Negative); Ketones,Urine Negative (Negative); Leukocyte Esterase,Urine Negative (Negative); PH,Urine 7.5 (5.0-8.5); Protein,Urine Negative (Negative); Specific Gravity, Urine 1.010 (1.005-1.030); Urobilinogen,Urine 0.2 EU/dl (0.2)
--- NOTE | 2025-04-26 11:06 | PC.NURSE ---
ROUNDED ON PT, NO NEEDS AT THIS TIME. CALL LIGHT WITHIN REACH
--- NOTE | 2025-04-26 11:45 | PC.NURSE ---
REPEAT TROP SENT
[2025-04-26 12:22] LABS: Troponin I < 0.01 ng/ml (0.00-0.034)
--- NOTE | 2025-04-26 12:23 | PC.NURSE ---
APPT MADE FOR PT TO SEE AISLINN ABARCA AT 1300 TODAY
== END 2025-04-26 12:31 | disposition home or self-care (01) ==
PROVIDERS: Emergency Provider Student in an Organized Health Care Education/Training Program; PCP Nurse Practitioner Family
DX: R07.89 Other chest pain (principal); R51.9 Headache, unspecified; R20.2 Paresthesia of skin; I10 Essential (primary) hypertension; F17.210 Nicotine dependence, cigarettes, uncomplicated
CPT/HCPCS: 70450; 70496; 70498; 71275; 80053; 81001; 83880; 84439; 84443; 84484; 85025; 93005; 96374; 99285; J1920; Q9967

== ENCOUNTER 2025-05-18 12:49 | Outpatient (CLI) | payer MEDICAID, SELFPAY ==
--- NOTE | 2025-05-18 13:00 | CA_ITS ---
APPROVED REPORT EXAM: Comprehensive 2D, Doppler, and color-flow Echocardiogram Windows Deployment Technician: ELIF Neumann, RVS Ht: 5 ft 4 in Wt: 168lbs BSA: 1.82 BP: 140/88 mmHg Indications: Smoker, HTN , CP, Dyspnea, Tachycardia Echo Enhancing Agent Indication: no IV access 2D Dimensions Left Atrium 2.72 cm F: 2.7 - 3.8 LA Volume 37.50 mL LA Volume Index 20.60 mL/m2 (M/F) 16-34 M-Mode Dimensions RVDd 2.95 cm (0.9-2.6) LA Diam 3.75 cm (1.9-4.0) LVDd 4.53 cm (3.5-5.7) LVDs 3.15 cm (3.5-5.7) IVSd 0.86 cm (0.6-1.1) PWd 0.90 cm (0.6-1.1) EF (Teich) 58.50% EPSs 2.10 cm FS 30.80% EDV (Teich) 94.90 mL TAPSE 1.70 (<1.7) ESV (Teich) 39.40 mL LV Diastology E Decel Time 223 (160-240 msec) E/A Ratio 0.70 MED A' 14.30 cm/s LAT A' 11.90 cm/s Aortic Valve CRYSTAL Index 0.98 cm2/m2 AoV Peak Antoine. 178.0 (50-130 cm/s) AO Peak GR. 12.70 mmHg AO Mean GR. 6.30 (<5 mmHg) AO VTI 29.0 (18-25 cm) CRYSTAL (VTI) 1.83 (2.5-4.5 cm2) Mitral Valve MV A Velocity 80.0 (40-130 cm/s) E/A Ratio 0.70 Left Ventricle The left ventricle is normal size. Left ventricular systolic function is low-normal. There is increased left ventricular wall thickness. There is mild hypokinesis of the basal inferoseptal LV wall. Transmitral Doppler flow pattern suggests impaired LV relaxation. LVEF is 50%. Right Ventricle The right ventricle is normal size. The right ventricular systolic function is normal. Atria The left atrium size is normal. The right atrium size is normal. There is no color Doppler evidence of interatrial shunt. Aortic Valve The aortic valve is mildly thickened. There is no hemodynamically significant aortic valvular stenosis. Trace aortic regurgitation is present. Mitral Valve The mitral valve is normal in structure. No evidence of mitral valve stenosis. Trace mitral regurgitation is present. Tricuspid Valve The tricuspid valve leaflets are thin and pliable. Trace tricuspid regurgitation. There is insufficient TR jet to estimate RVSP. Pulmonic Valve The pulmonary valve is grossly normal in structure. Trace pulmonic valve regurgitation is present. Great Vessels The aortic root is normal in size. IVC is normal in size and collapses >50% with inspiration. Pericardium There is no pericardial effusion. Other Information Study Quality: Fair Conclusion Low-normal LV systolic function (LVEF 50%). Mild hypokinesis of the basal inferoseptal LV wall. No significant valvular stenosis or regurgitation. Electronically signed by : Nemo Dotson MD 05/19/2025 00:04:21
== END 2025-05-18 23:59 | disposition home or self-care (01) ==
LOC: RT 12:50
PROVIDERS: PCP Nurse Practitioner Family; Visit Provider Nurse Practitioner Family
DX: I10 Essential (primary) hypertension (principal); R00.0 Tachycardia, unspecified; R06.00 Dyspnea, unspecified; R07.9 Chest pain, unspecified; F17.200 Nicotine dependence, unspecified, uncomplicated; R93.1 Abnormal findings on diagnostic imaging of heart and coronary circulation
CPT/HCPCS: 93306

== ENCOUNTER 2025-05-19 10:51 | Outpatient (CLI) | payer MEDICAID, SELFPAY ==
[2025-05-19 12:27] LABS: Albumin Level 4.7 g/dl (3.5-5.0)
[2025-05-19 12:29] LABS: Bilirubin,Unconjugated 0.3 mg/dL (0.0-1.1)
[2025-05-19 12:30] LABS: Alanine Aminotransferase 14 U/L (12-78); Alkaline Phosphatase 70 U/L (38-126); Aspartate Amino Transferase 26 U/L (14-36); Bilirubin,Direct 0.1 mg/dl (0.0-0.4); Bilirubin,Indirect 0.3 mg/dL (0.0-0.9); Bilirubin,Total 0.4 mg/dl (0.2-1.3); Cholesterol 295 mg/dl (140-200); HDL Cholesterol 62 mg/dl (40-60); Total Protein,Serum 7.5 g/dl (6.3-8.2); Triglycerides 177 mg/dl (30-150)
== END 2025-05-19 23:59 | disposition home or self-care (01) ==
LOC: LAB 10:51
PROVIDERS: PCP Nurse Practitioner Family; Visit Provider Nurse Practitioner Family
DX: I73.9 Peripheral vascular disease, unspecified (principal); I10 Essential (primary) hypertension; R07.9 Chest pain, unspecified; R53.83 Other fatigue; R93.1 Abnormal findings on diagnostic imaging of heart and coronary circulation
CPT/HCPCS: 36415; 80061; 80076

== ENCOUNTER 2025-05-24 13:22 | Outpatient (CLI) | payer MEDICAID, SELFPAY ==
--- NOTE | 2025-05-24 13:30 | US_ITS ---
FINAL REPORT CLINICAL HISTORY: claudication, current smoker, HTN, hyperlipidemia, bilateral rest pain. FINDINGS: Ankle-brachial indices were obtained. The right EDGAR is 0.92, borderline. The left EDGAR is 0.45, mild to moderate peripheral arterial disease. IMPRESSION: Borderline EDGAR on the right. Mild to moderate peripheral arterial disease on the left. Reviewed, Interpreted and Dictated by Noelle Kilgore MD Transcribed by Genesis Lares Authenticated and [facility]
--- NOTE | 2025-05-24 14:00 | US_ITS ---
FINAL REPORT TECHNIQUE: Sonographic images of the kidneys and retroperitoneum were obtained in the longitudinal and transverse planes. CLINICAL HISTORY: R07.89 - Other chest pain FINDINGS: The right kidney measures 10.5 cm in [id number] length. No hydronephrosis, mass, or stone. Cortical echogenicity and thickness are normal. The left kidney measures 10.1 cm in [id number] length. There is a 9 mm hypoechoic lesion, could be angiomyolipoma. Cortical echogenicity and thickness are normal. 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 Reviewed, Interpreted and Dictated by Noelle Kilgore MD Transcribed by Genesis Lares Authenticated and [facility]
== END 2025-05-24 23:59 | disposition home or self-care (01) ==
LOC: RT 13:22
PROVIDERS: PCP Nurse Practitioner Family; Visit Provider Nurse Practitioner Family
DX: I73.9 Peripheral vascular disease, unspecified (principal); R93.422 Abnormal radiologic findings on diagnostic imaging of left kidney; R09.89 Other specified symptoms and signs involving the circulatory and respiratory systems; I10 Essential (primary) hypertension; R53.83 Other fatigue; R93.1 Abnormal findings on diagnostic imaging of heart and coronary circulation; R07.89 Other chest pain
CPT/HCPCS: 76770; 93923

== ENCOUNTER 2025-05-26 07:42 | Outpatient (CLI) | payer MEDICAID, SELFPAY ==
--- NOTE | 2025-05-26 08:00 | CA_ITS ---
FINAL REPORT CLINICAL HISTORY: HTN, Smoker, CAD, PAD COMPARISON: None FINDINGS: Aorta velocity: 70 cm/sec Right kidney: 9.4 cm. No evidence of hydronephrosis or mass. Right intrarenal RI: 0.65-0.67 Right renal artery velocity: 222 cm/sec. Right RAR (Renal artery-Aortic Ratio): 3.2 Left Kidney: 9.2 cm. No evidence of hydronephrosis or mass. Left intrarenal RI: 0.55-0.64 Left renal artery velocity: 240 cm/sec. Left RAR (Renal Artery-Aortic Ratio): 3.4 IMPRESSION: Less than 60% stenosis of the renal arteries bilaterally. CT angiogram or postcontrast MR angiogram would be more sensitive for evaluation of possible renal artery stenosis. Reviewed, Interpreted and Dictated by Noelle Kilgore MD Transcribed by Milly Melvin Authenticated and [facility]
== END 2025-05-26 23:59 | disposition home or self-care (01) ==
LOC: RT 07:43
PROVIDERS: PCP Nurse Practitioner Family; Visit Provider Nurse Practitioner Family
DX: I70.1 Atherosclerosis of renal artery (principal); I73.9 Peripheral vascular disease, unspecified; I10 Essential (primary) hypertension; R07.9 Chest pain, unspecified; R53.83 Other fatigue; R93.1 Abnormal findings on diagnostic imaging of heart and coronary circulation; F17.200 Nicotine dependence, unspecified, uncomplicated; I25.10 Atherosclerotic heart disease of native coronary artery without angina pectoris
CPT/HCPCS: 93976

== ENCOUNTER 2025-06-03 11:37 | Outpatient (CLI) | payer MEDICAID, SELFPAY ==
--- NOTE | 2025-06-03 | CA_ITS ---
APPROVED REPORT Exam: Pharmacologic Technologist: Amira Franklin Ht: 5 ft 4 in Wt: 166 lbs BSA: 1.81 m2 Stress Test Details Test: Lexiscan Reason for pharmacologic stress test: physical limitation. HR Resting HR: 77 bpm Max Heart Rate (APMHR): 164.531648 bpm Max HR Achieved: 118 bpm Target HR (85% APMHR): 139.991564 bpm % of APMHR: 71.95 Recovery HR: 95 bpm BP Resting BP: 169.0/91.0 mmHg Max BP: 195.0/112.0 mmHg Recovery BP: 191.0/109.0 mmHg ECG Stress ECG Conclusion Symptoms: Nausea/Headache. Arrhythmias/Ectopy: PAC. ST-T Changes: less than 0.5mm upsloping ST segment changes. Conclusion: Nondiagnostic ECG/Lexiscan. Hypertensive response during recovery. [facility]5 [facility] PAC notified. 1407 BP 190/112 HR 98 Aminophylline 50mg IVP. 1410 BP 166/112. Electronically signed by : Nemo Dotson MD 06/05/2025 22:46:31
--- NOTE | 2025-06-03 12:00 | NM_ITS ---
APPROVED REPORT Exam: Nuclear Stress Test Indication: htn, hyperlipidemia, tob use, fm hx, Patient Location: Outpatient Stress Tech: Ashli Ray NM Tech:Terri Sheehan SETHPuma RT (R)(N)(M) Ht: 5 ft 4 in Wt: 160 lbs Bra Size: d HR: 77 bpm BP: 169/91 mmHg BSA: 1.78 m2 TID: 1.09 BMI: 27.4 History: htn, hyperlipidemia, tob use, fm hx, Procedure: Patient received 0.4 mg of intravenous AdenosineLexiscan, resting heart rate 77 bpm, resting blood pressure 169/91 mmHg, with Lexiscan maximum heart rate achieved was 118 bpm which is % of the maximum predicted heart rate and blood pressure was 157/103 mmHg. With Lexiscan, patient denied any complaint of chest pain. Cardiac Stress and Resting SPECT Images: Cardiac Stress and Resting SPECT images were obtained using technetium 99m Myoview 32.1 mCi stress and 10.61 mCi at rest. Resting and stress imaging in supine and prone positions demonstrate a large sized, moderate, predominantly fixed perfusion defect in the inferior and inferoseptal LV bolaños. There is a small region of reversibility towards the inferoseptal LV wall. Gated imaging demonstrates low-normal global LV systolic function. LVEF is calculated at 51%. Conclusion: Large sized, moderate, predominantly fixed perfusion defect in the inferior and inferoseptal LV bolaños. There is a small region of reversibility towards the inferoseptal LV wall. Findings are suggestive of partial reversible ischemia. Gated imaging demonstrates low-normal global LV systolic function. LVEF is calculated at 51%. Electronically signed by : Nemo Dotson MD 06/05/2025 22:45:14
[2025-06-03] MEDS: SODIUM CHLORIDE 0.9% 10ML SYR (RAD ONLY) 10 ML IV ×2 (13:21→13:22)
[2025-06-03] MEDS: ISOTOPE MYOVIEW (PER STUDY) 1 DOSE IV (13:21)
[2025-06-03 13:30] VITALS: BP 190/115; PULSE 100; RESP 16
--- NOTE | 2025-06-03 14:50 | PC.NURSE ---
Experienced nausea during vasodilation phase of lexiscan. BP elevated with max at 190/115 HR 100- 12 minutes into recovery phase 1335-Provider Fred Gonzales PAC notified, new orders, wait 30minutes recheck bp if greater than 180 mg systolic, give aminophylline 50 mg IVP 1407-BP 190/112 HR 98-aminophylline 50mg IVP 1410- BP 166/112, sent for second set of nuclear images, will recheck bp prior to discharge 1501-BP 178/90 1501-Fred Gonzales PA-C notified, new orders for rx Norvasc 5 mg daily start today. Rx sent to clinic pharmacy-patient discharged to home.-Terri Fiore BSN, RN
== END 2025-06-03 23:59 | disposition home or self-care (01) ==
LOC: RAD 11:38
PROVIDERS: PCP Nurse Practitioner Family; Visit Provider Nurse Practitioner Family
DX: I49.1 Atrial premature depolarization (principal); E78.5 Hyperlipidemia, unspecified; I10 Essential (primary) hypertension; R94.39 Abnormal result of other cardiovascular function study; I73.9 Peripheral vascular disease, unspecified; R53.83 Other fatigue; R93.1 Abnormal findings on diagnostic imaging of heart and coronary circulation; R94.31 Abnormal electrocardiogram [ECG] [EKG]; Z72.0 Tobacco use
CPT/HCPCS: 78452; 93017; 93018; A9502; J0280; J2785

== ENCOUNTER 2025-06-21 08:27 | Day surgery (SDC) | payer MEDICAID, SELFPAY ==
[2025-06-21] VITALS (12 sets, daily range): BP systolic 104–173; BP diastolic 60–96; PULSE 69–86; RESP 18–20; TEMP 36.9; O2SAT 96–100; BMI 28.5
--- NOTE | 2025-06-21 07:14 | IR_ITS ---
APPROVED REPORT Patient Location: Outpatient PROCEDURES Left heart catheterization Left ventriculogram Selective coronary angiogram Angioplasty of a chronically occluded distal right coronary artery Attempted revascularization of the chronically occluded distal right coronary INDICATION Coronary artery disease, Angina pectoris, Chronic occlusion of the right coronary, Informed consent was obtained prior to the procedure. COMPLICATIONS NONE Estimated Blood Loss: LESS THAN 10 ML TECHNIQUE One percent lidocaine used to anesthetize the right anterior aspect of the wrist. The right radial artery was accessed via the Seldinger technique. A 6 Belarusian sheath was placed in the right radial artery. 2.5 mg of Verapamil, 800 mcg of nitroglycerin, 1mg Lidocaine and 5000 U Heparin were given through the arterial sheath. The JL3 catheter was also used to perform left heart catheterization, left ventriculogram and selective coronary angiogram. At the end of the diagnostic angiogram therapeutic heparin was administered giving a therapeutic ACT and the guide catheter was placed on the right coronary artery followed by Choice PT extra-support wire placed distally. The wire was able to enter the occlusion and pushed distally. A 2 mm x 12 mm compliant balloon was deployed at 10 edward at the occluded site which did not restore flow. Given there was no anglican or recanalization of antegrade blood flow it was decided to end the procedure at this point. The apparatus was removed the sheath was removed and hemostasis was achieved using TR banding patient was transferred to the postop porting in stable condition ANGIOGRAPHIC RESULTS The left main artery Normal The left anterior descending artery Has proximal 10% stenoses with mid vessel 20% stenosis The circumflex artery Large codominant with diffuse 10 to 20% stenoses throughout The right coronary artery Codominant and occluded immediately distal to an RV marginal. The distal vessel fills via Rich and dense [id number] collaterals The KHAN ventriculogram reveals Preserved at 60% The left ventricular end-diastolic pressure 15 mmHg IMPRESSION Chronically occluded right coronary artery Angioplasty with attempted revascularization of a chronically occluded right coronary which was unsuccessful in establishing antegrade flow Preserved ejection fraction Borderline LVEDP PLAN 1. Aggressive medical management for coronary artery disease with maximizing antianginal medications 2. LDL less than 55 to be achieved with high intensity statin 3. Avoidance of tobacco products 4. Risk factor modification 5. Patient be brought back to the Senior Applications Architect will undergo groin access to perform bilateral iliofemoral runoff. Patient had significant spasm during the cardiac procedure and it was felt a catheter would not make it distally into the abdominal aorta. Groin access is more desired Electronically signed by : Shyam Luu MD 06/21/2025 14:05:06
[2025-06-21 09:05] LABS: Hematocrit 44.1 % (37.0-47.0); Hemoglobin 15.0 g/dL (12.2-16.2); Immature Granulocytes % 0.4 %; Mean Corpuscular HGB Conc 34.0 g/dL (31.8-35.4); Mean Corpuscular Hemoglobin 30.5 pg (27.0-31.2); Mean Corpuscular Volume 89.6 fl (81-99); Nucleated Red Blood Cells % 0 %; Platelet Count 425 K/mm3 (142-424); Red Blood Count 4.92 M/mm3 (4.20-5.40); Red Cell Distribution Width-SD 43.1 fL; White Blood Count 10.4 K/mm3 (4.8-10.8)
[2025-06-21] MEDS: 0.9 % SODIUM CHLORIDE 500 ML 25 ML IV (10:11)
[2025-06-21] MEDS: FENTANYL 100MCG/2ML VIAL 50 MCG IV (10:11)
[2025-06-21] MEDS: HEPARIN 1,000 UNITS/500ML NS (CATH LAB) 3000 UNIT IV (10:11)
[2025-06-21] MEDS: MIDAZOLAM HCL 1MG/ML 5ML VIAL 1 MG IV (10:11)
[2025-06-21] MEDS: NITROGLYCERIN 800MCG/8ML SYR (CATH LAB) 800 MCG IA (10:11)
[2025-06-21] MEDS: LIDOCAINE 1% 10ML MDV 10 ML IJ (10:11)
[2025-06-21] MEDS: HEPARIN 1,000 UNITS/ML 10ML VIAL (CATH LAB) 5000 UNIT IV (10:12)
[2025-06-21] MEDS: VERAPAMIL 2.5MG/ML 2ML VIAL 2.5 MG IV (10:12)
--- NOTE | 2025-06-21 10:16 | SUR.PREOP ---
Called lab for update on chemistry panel, stated their machine is having trouble and does not have a time when the labs will be released. Notified , stated to go ahead and load patient and we can use labs from April.
[2025-06-21] MEDS: PRASUGREL 10MG TAB 60 MG PO (11:23)
[2025-06-21] MEDS: IOPAMIDOL-370 (76%);100ML BOTTLE 90 ML IV (11:46)
[2025-06-21 11:50] LABS: CATHL Activated Clotting Time 371 SEC (74-125)
[2025-06-21 13:15] LABS: Anion Gap 16.8 mEq/L (5-15); Blood Urea Nitrogen 14 mg/dl (7-17); Calcium 9.1 mg/dl (8.4-10.2); Carbon Dioxide 25 mmol/L (22.0-30.0); Chloride 98 mmol/L (98-107); Creatinine Clearance Estimated 83 mL/min (50-200); Creatinine,Serum 0.90 mg/dl (0.52-1.04); Estimated Glomerular Filt Rate 65 ml/min (>60); GFR (African American) 78 ML/MIN (>60); Glucose 85 mg/dl (74-100); Potassium 3.8 mmoL/L (3.5-5.1); Sodium 136 mmol/L (136-145)
== END 2025-06-21 14:22 | disposition home or self-care (01) ==
LOC: CATHLAB 08:28
PROVIDERS: PCP Nurse Practitioner Family; Visit Provider Internal Medicine
PROC: 4A023N7 Measurement of Cardiac Sampling and Pressure, Left Heart, Percutaneous Approach (ICD-10-PCS; CPT 93452; principal; 2025-06-21 08:30)
DX: I25.118 Atherosclerotic heart disease of native coronary artery with other forms of angina pectoris (principal); R94.39 Abnormal result of other cardiovascular function study; R93.1 Abnormal findings on diagnostic imaging of heart and coronary circulation; I73.9 Peripheral vascular disease, unspecified; I10 Essential (primary) hypertension; R68.89 Other general symptoms and signs; E78.2 Mixed hyperlipidemia; R53.83 Other fatigue; F17.210 Nicotine dependence, cigarettes, uncomplicated; Z79.82 Long term (current) use of aspirin; Z79.899 Other long term (current) drug therapy
CPT/HCPCS: 80048; 85025; 85347; 92920; 93458; 99152; 99153; C1725; C1769; J1200; J1644; J2003; J3010; J7040; Q9967

== ENCOUNTER 2025-06-23 15:36 | Outpatient (CLI) | payer MEDICAID, SELFPAY ==
[2025-06-23 16:12] LABS: Hematocrit 42.4 % (37.0-47.0); Hemoglobin 13.7 g/dL (12.2-16.2); Immature Granulocytes % 0.6 %; Mean Corpuscular HGB Conc 32.3 g/dL (31.8-35.4); Mean Corpuscular Hemoglobin 29.1 pg (27.0-31.2); Mean Corpuscular Volume 90.0 fl (81-99); Nucleated Red Blood Cells % 0 %; Platelet Count 406 K/mm3 (142-424); Red Blood Count 4.71 M/mm3 (4.20-5.40); Red Cell Distribution Width-SD 43.6 fL; White Blood Count 10.4 K/mm3 (4.8-10.8)
[2025-06-23 20:43] LABS: Anion Gap 13.2 mEq/L (5-15); Blood Urea Nitrogen 17 mg/dl (7-17); Calcium 9.3 mg/dl (8.4-10.2); Carbon Dioxide 31 mmol/L (22.0-30.0); Chloride 95 mmol/L (98-107); Creatinine,Serum 1.10 mg/dl (0.52-1.04); Estimated Glomerular Filt Rate 51 ml/min (>60); GFR (African American) 62 ML/MIN (>60); Glucose 78 mg/dl (74-100); Potassium 4.2 mmoL/L (3.5-5.1); Sodium 135 mmol/L (136-145)
== END 2025-06-23 23:59 | disposition home or self-care (01) ==
LOC: LAB 15:36
PROVIDERS: PCP Nurse Practitioner Family; Visit Provider Internal Medicine
DX: I25.10 Atherosclerotic heart disease of native coronary artery without angina pectoris (principal)
CPT/HCPCS: 36415; 80048; 85025

== ENCOUNTER 2025-07-01 13:08 | Observation (INO) | payer MEDICAID, SELFPAY ==
[2025-07-01] VITALS (44 sets, daily range): BP systolic 90–171; BP diastolic 54–105; PULSE 59–94; RESP 14–18; TEMP 36.4; O2SAT 92–100; BMI 28.3; BMI 28.6
--- NOTE | 2025-07-01 06:59 | IR_ITS ---
APPROVED REPORT Patient Location: Outpatient PROCEDURES Right femoral arterial access Catheter placement abdominal aorta Abdominal aortography Repositioning of the catheter in the abdominal aorta Bilateral iliofemoral runoff Bare-metal stent deployment to the right external iliac artery Bare-metal stent deployment to the left external iliac artery Bare-metal stent deployment to the proximal left common iliac artery INDICATION Peripheral artery disease, Abnormal EDGAR, Atherosclerosis with severe stenosis in the right external iliac artery, left external iliac artery, and left common iliac artery Informed consent was obtained prior to the procedure. COMPLICATIONS NONE Estimated Blood Loss: LESS THAN 10 ML TECHNIQUE 1% lidocaine used anesthetize right groin the right from artery is accessed via the central technique and a 5 Pashto sheath is placed in the right femoral artery. A pigtail catheter was advanced into the abdominal aorta where abdominal aortography was performed. The catheter was then repositioned and bilateral iliofemoral runoff was performed. Following this therapeutic Was administered giving a therapeutic ACT and the 5 Pashto sheath was exchanged for a 6 Pashto sheath. A 7 mm x 40 mm bare-metal self-expanding stent was deployed in the right external iliac artery. A 6 mm x 40 mm balloon was then placed inside the stent and deployed at 10 edward to post dilate. Excellent angiographic results were obtained. A rim catheter was placed over an advantage wire and the catheter was advanced into the ostium of the left common iliac artery. Under fluoroscopic guidance the wire was advanced to the left superficial femoral artery where the short 6 Pashto sheath was exchanged for a 45 cm Brite tip 6 Pashto sheath. The sheath was advanced to the ostial proximal segment of the left common iliac artery. A 6 mm x 40 mm balloon was dilated to 6 edward in the left external iliac artery to predilate. following this a 7 mm x 80 mm bare-metal self-expanding stent was placed on the left external iliac artery. The 6 mm balloon was then placed back into the proximal and distal segment and deployed at 10 and 12 edward reducing the stenosis to 0%. An additional 8 mm x 37 mm bare-metal balloon mounted stent was placed in the ostial proximal segment of the left common iliac artery and deployed at 12 edward reducing the severe stenosis to 0%. After achieving excellent angiograph results apparatus was removed patient was transferred to the postop putting in stable addition for sheath removal ANGIOGRAPHIC RESULTS Distal abdominal aorta is patent but mild to moderately calcified with a distal 20 to 30% stenosis. The right common iliac artery has proximal 10 to 20% stenosis. The internal iliac artery has a 30% stenosis. The right external iliac artery has a concentric 80 to 90% stenosis. The right common femoral artery has a 70 to 80% stenosis throughout its course. The right superficial femoral artery is widely patent and has inline flow into the popliteal artery. There is two-vessel runoff below the knee on the right side. The right profunda femoris artery is patent Left common iliac artery has a proximal calcified 80% stenosis. The left internal iliac artery is patent the left external iliac artery is severely calcified creating a greater than 90% stenosis proximally with long tubular 80% stenosis. The left profunda femoris artery is patent the left superficial femoral artery is patent the left popliteal artery is patent there is three-vessel runoff below the knee on the left side IMPRESSION Peripheral artery disease as described above most notably with severe disease in the right external iliac artery with successful stenting reducing lesion to 0% with 1 bare-metal self-expanding stent Severe disease in the ostial proximal segment of left common artery severe calcified disease reduced to 0% with 1 bare-metal balloon mounted stent Severe disease in the left external iliac artery with severe disease reduced to 0% with 1 bare-metal self-expanding stent PLAN 1. Xarelto 2.5 twice daily plus aspirin 81 mg daily 2. LDL less than 55 achieved high intensity statin 3. Avoidance of tobacco products 4. Patient should be monitored overnight given the 6 Pashto sheath and the manual pull required due to patient's extensive peripheral vascular disease 5. Patient continues to experience right leg claudication she may be a candidate for right femoral artery endarterectomy Electronically signed by : Shyam Luu MD 07/01/2025 14:14:58
[2025-07-01 09:05] LABS: Hematocrit 41.3 % (37.0-47.0); Hemoglobin 13.7 g/dL (12.2-16.2); Immature Granulocytes % 0.5 %; Mean Corpuscular HGB Conc 33.2 g/dL (31.8-35.4); Mean Corpuscular Hemoglobin 29.5 pg (27.0-31.2); Mean Corpuscular Volume 89.0 fl (81-99); Nucleated Red Blood Cells % 0 %; Platelet Count 413 K/mm3 (142-424); Red Blood Count 4.64 M/mm3 (4.20-5.40); Red Cell Distribution Width-SD 42.8 fL; White Blood Count 10.8 K/mm3 (4.8-10.8)
[2025-07-01 09:09] LABS: Chloride 95 mmol/L (98-107); Potassium 3.8 mmoL/L (3.5-5.1); Sodium 134 mmol/L (136-145)
[2025-07-01 09:11] LABS: Blood Urea Nitrogen 15 mg/dl (7-17); Creatinine Clearance Estimated 74 mL/min (50-200); Creatinine,Serum 1.00 mg/dl (0.52-1.04); Estimated Glomerular Filt Rate 57 ml/min (>60); GFR (African American) 69 ML/MIN (>60)
[2025-07-01 09:12] LABS: Anion Gap 12.8 mEq/L (5-15); Calcium 9.4 mg/dl (8.4-10.2); Carbon Dioxide 30 mmol/L (22.0-30.0); Glucose 89 mg/dl (74-100)
[2025-07-01] MEDS: 0.9 % SODIUM CHLORIDE 500 ML 25 ML IV (10:33)
[2025-07-01] MEDS: HEPARIN 1,000 UNITS/500ML NS (CATH LAB) 3000 UNIT IV (10:33)
[2025-07-01] MEDS: MIDAZOLAM HCL 1MG/ML 5ML VIAL 1 MG IV (10:33)
[2025-07-01] MEDS: LIDOCAINE 1% 10ML MDV 10 ML IJ (10:33)
[2025-07-01] MEDS: FENTANYL 100MCG/2ML VIAL 50 MCG IV (10:34)
[2025-07-01] MEDS: HEPARIN 1,000 UNITS/ML 10ML VIAL (CATH LAB) 5000 UNIT IV (10:58)
[2025-07-01] MEDS: PROTAMINE SULFATE 50MG/5ML VIAL (CATH LAB) 50 MG IV (11:28)
--- NOTE | 2025-07-01 11:50 | P.HP_ITS ---
<Statement entered by Germán Vann MD - 07/01/25 16:22> Rounded on patient after nurse practitioner. Personally examined and interviewed patient. Agree with exam findings and care plan as documented. History of Present Illness *Admission Date: 07/01/25 *Reason for visit:: s/p runoff *History of present illness: Ms. Warren is a 55-year-old female who underwent a right groin access bilateral iliofemoral runoff with right external iliac artery stenting, left common artery stenting, and left external iliac artery stenting. Patient has a primary medical history of CAD, PAD, hypertension, hyperlipidemia, claudication, and tobacco use. Patient tolerated procedure well, admission was requested from cardiology due to risk of bleeding. [facility] Disclaimer: The information contained in this section may have been updated after the patient was seen, as this information can be updated by other users. Medical History Coronary artery disease Angina pectoris Abnormal ankle brachial index (EDGAR) PAD (peripheral artery disease) Atypical angina Abnormal stress test HLD (hyperlipidemia) Abnormal echocardiogram Fatigue Claudication Encounter to establish care Depression Surgical History (Updated 07/01/25 @ 15:01 by Maria Guadalupe Gonzales APRN) History of surgery of liver Family History Other No significant family history Social History (Updated 07/01/25 @ 13:26 by Usha Gerard RN) Smoking Status: Current every day smoker alcohol intake: never substance use type: denies use current occupational status: employed and other Travel in the last 8 weeks?: None Have you lived/traveled outside [place] in past 30 days?: No Contact w/someone who lives/traveled outside US past 30 days?: No Exposure to someone with infectious disease in past 14 days?: No Do you have a fever (greater than 100.4 F or 38 C)?: No Have you tested positive for COVID-19?: No Exposed to someone with COVID-19 in past 14 days?: No Do you have a sore throat?: No Do you have a cough?: No Do you have any weakness?: No Are you experiencing any nausea/vomitting?: No Do you have any diarrhea?: No Are you experiencing any unusual bleeding?: No Do you have any muscle aches/pain?: No Do you have any abdominal pain?: No Are you experiencing loss of taste or smell?: No Other Medical History Have you received the Pneumonia Vaccine: No Review of Systems Review of Systems Review of systems:: pertinent systems reviewed and negative unless documented below Meds Home Medications and Allergies Home Medications ?Medication ?Instructions ?Recorded ?Confirmed ?Type aspirin 81 mg tablet,delayed 81 mg PO DAILY #30 tabs 0 05/19/25 07/01/25 Rx release (Adult Aspirin Regimen) atorvastatin 40 mg tablet 40 mg PO DAILY #90 tabs 12/0807/01/25 Rx metoprolol succinate 50 mg 50 mg PO HS #90 tabs 07/01/25 Rx tablet,extended release 24 hr amlodipine 5 mg tablet 5 mg PO DAILY #90 tabs 06/0307/01/25 Rx prasugrel HCl 10 mg tablet 10 mg PO DAILY 30 days #30 tabs 06/21/25 07/01/25 Rx (Effient) varenicline tartrate 1 mg tablet 1 mg PO BID 12 weeks #168 tabs 06/28/25 07/01/25 Rx (Chantix Continuing Month Box) irbesartan 300 1 tab PO DAILY 300/12.5MG 07/01/25 History mg-hydrochlorothiazide 12.5 mg tablet New Prescriptions to Start Prescriptions: Allergies Allergy/AdvReac Type Severity Reaction Status Date / Time No Known Allergies Allergy Verified 07/01/25 08:54 Exam Data for Last 24 hours Vital signs and Labs for Last 24 Hours: Temp Pulse Resp BP Pulse Ox O2 Del Method 97.6 F 75 16 123/67 95 Room Air 07/01/25 08:44 07/01/25 11:21 07/01/25 11:21 07/01/25 11:21 07/01/25 11:21 07/01/25 11:21 Laboratory Results - last 24 hr 07/01/25 08:53: WBC 10.8, RBC 4.64, Hgb 13.7, Hct 41.3, MCV 89.0, MCH 29.5, MCHC 33.2, RDW 13.1, Plt Count 413, MPV 8.9, Neut % (Auto) 67.1, Lymph % (Auto) 20.3, [place] % (Auto) 7.3, Eos % (Auto) 3.7, Baso % (Auto) 1.1, Neut # (Auto) 7.2, Lymph # (Auto) 2.2, [place] # (Auto) 0.8, Eos # (Auto) 0.4, Baso # (Auto) 0.1, Sodium 134 L, Potassium 3.8, Chloride 95 L, Carbon Dioxide 30, Anion Gap 12.8, BUN 15, Creatinine 1.00, Estimated Creat Clear 74, Estimated GFR 57 L, Est GFR ( Amer) 69, Glucose 89, Calcium 9.4 I & O for Last 24 hours: Intake & Output 06/28/25 06/29/25 06/30/25 07/01/25 23:59 23:59 23:59 23:59 Intake Total / Balance / Weight 74.843 kg Constitutional Constitutional: no acute distress, average body habitus and cooperative *Routine HEENT Exam Head: Present normocephalic Eye: Present EOMI and PERRL ENT: Present mucous membranes moist *Routine Neck Exam Neck: Present supple; Absent lymphadenopathy *Routine Respiratory Exam Respiratory: Present CTA bilaterally, normal respiratory effort and symmetric chest movement; Absent wheezes or crackles *Routine Cardiovascular Exam Cardiovascular: Present RRR; Absent murmur *Routine Abdominal Exam Abdominal: Present soft and normoactive bowel sounds; Absent tenderness *Routine Rectal Exam Rectal:: deferred *Routine Genitalia Exam Genitalia:: deferred *Routine Extremities Exam Extremities: Absent cyanosis, clubbing or edema Comments: Right groin cath site CDI *Routine Skin Exam Skin: Present intact, dry and warm; Absent erythema or rash Comments: Bruising right wrist *Routine Neurological Exam Neurological: Present alert, oriented X3, vision grossly intact, hearing grossly intact and normal speech Routine Psychiatric Exam Psychiatric: Present normal affect Assessment and Plan *Assessment and plan (1) Status post aortography with runoff: Status: Acute Category: Surgical Code(s): Z98.890 - Other specified postprocedural states (2) Angina pectoris: Status: Acute Category: Medical Code(s): I20.9 - Angina pectoris, unspecified (3) Abnormal ankle brachial index (EDGAR): Status: Acute Category: Medical Code(s): R68.89 - Other general symptoms and signs (4) Tobacco use: Status: Acute Category: Social Hx Code(s): Z72.0 - Tobacco use Plan Ms. Warren is a 55-year-old female who underwent a right groin access bilateral iliofemoral runoff with right external iliac artery stenting, left common artery stenting, and left external iliac artery stenting. Patient has a primary medical history of CAD, PAD, hypertension, hyperlipidemia, claudication, and tobacco use. Patient tolerated procedure well, admission was requested from cardiology due to risk of bleeding. I agreed to accept the patient for further monitoring, plan of care is as follows: #S/p bilateral iliofemoral runoff with stenting x 3 #Abnormal EDGAR #PAD ? Patient doing well post-procedure, laying supine due to femoral access site. Site clean dry and intact with dressing. Postprocedure instructions given. Patient received 3 stents, per cardiology start on Xarelto 2.5 mg twice daily plus aspirin 81 mg daily. Per procedure report, if patient continues to expe rience right leg claudication she may be a candidate for right femoral artery endarterectomy. ? Will continue patient's Effient 10 mg daily, metoprolol 50 mg daily, irbesartan?HCTZ 1 tab daily, atorvastatin 40 mg daily, and amlodipine 5 mg daily. ? Patient continues to remain hemodynamically stable, placed on cardiac telemetry. CBC, CMP, magnesium, lipid panel ordered for the a.m. #Tobacco use disorder ? Patient states she is everyday smoker, smoking cessation discussed. Nicotine patches ordered as needed. Full code Bedrest; supine to 6 PM then may sit up VTE?Xarelto Cardiac diet
--- NOTE | 2025-07-01 12:37 | SUR.PHASEII ---
called report to marysol armstrong
[2025-07-01] MEDS: IOPAMIDOL-250 (51%) 100ML BOT 200 ML IV (12:53)
[2025-07-01 15:39] LABS: CATHL Activated Clotting Time 292 SEC (74-125)
[2025-07-01] MEDS: ACETAMINOPHEN 325MG TAB 650 MG PO (16:18)
[2025-07-01] MEDS: METOPROLOL SUCCINATE XL 50MG TABLET 50 MG PO (20:27)
[2025-07-01] MEDS: ATORVASTATIN 40MG TABLET 40 MG PO (20:27)
[2025-07-02] VITALS: BP 124/75; PULSE 70; PULSE 80; RESP 16; TEMP 36.5; O2SAT 99
[2025-07-02 04:00] VITALS: BP 147/84; PULSE 79; PULSE 80; RESP 20; TEMP 37.2; O2SAT 98; BMI 28.5
[2025-07-02 06:19] LABS: White Blood Count 9.7 K/mm3 (4.8-10.8)
[2025-07-02 06:20] LABS: Hematocrit 41.9 % (37.0-47.0); Hemoglobin 13.9 g/dL (12.2-16.2); Immature Granulocytes % 0.3 %; Mean Corpuscular HGB Conc 33.2 g/dL (31.8-35.4); Mean Corpuscular Hemoglobin 29.2 pg (27.0-31.2); Mean Corpuscular Volume 88.0 fl (81-99); Nucleated Red Blood Cells % 0 %; Platelet Count 361 K/mm3 (142-424); Red Blood Count 4.76 M/mm3 (4.20-5.40); Red Cell Distribution Width-SD 42.0 fL
--- NOTE | 2025-07-02 06:24 | PC.NURSE ---
No events overnight. Patient right groin site covered with pressure dressing of tegaderm and gauze. No drainage or hematoma noted. Patient denies pain and ambulated independently throughout room. +2 pedal pulses noted in bilateral lower extremities. Call light within reach.
[2025-07-02 06:36] LABS: Chloride 98 mmol/L (98-107)
[2025-07-02 06:37] LABS: Potassium 3.9 mmoL/L (3.5-5.1); Sodium 134 mmol/L (136-145)
[2025-07-02 06:39] LABS: Blood Urea Nitrogen 16 mg/dl (7-17); Creatinine Clearance Estimated 75 mL/min (50-200); Creatinine,Serum 1.00 mg/dl (0.52-1.04); Estimated Glomerular Filt Rate 57 ml/min (>60); GFR (African American) 69 ML/MIN (>60)
[2025-07-02 06:40] LABS: Anion Gap 10.9 mEq/L (5-15); Calcium 9.1 mg/dl (8.4-10.2); Carbon Dioxide 29 mmol/L (22.0-30.0); Cholesterol 185 mg/dl (140-200); Glucose 100 mg/dl (74-100); HDL Cholesterol 66 mg/dl (40-60); Triglycerides 108 mg/dl (30-150)
[2025-07-02 06:55] LABS: Albumin Level 4.0 g/dl (3.5-5.0)
[2025-07-02 06:57] LABS: Bilirubin,Unconjugated 0.5 mg/dL (0.0-1.1)
[2025-07-02 06:58] LABS: Alanine Aminotransferase 19 U/L (12-78); Alkaline Phosphatase 84 U/L (38-126); Aspartate Amino Transferase 23 U/L (14-36); Bilirubin,Direct 0.0 mg/dl (0.0-0.4); Bilirubin,Indirect 0.5 mg/dL (0.0-0.9); Bilirubin,Total 0.5 mg/dl (0.2-1.3); Total Protein,Serum 6.8 g/dl (6.3-8.2)
[2025-07-02 08:00] VITALS: BP 138/88; PULSE 85; PULSE 90; RESP 18; TEMP 36.4; O2SAT 98
[2025-07-02] MEDS: AMLODIPINE 5MG TABLET 5 MG PO (09:38)
[2025-07-02] MEDS: PRASUGREL 10MG TAB 10 MG PO (09:38)
[2025-07-02] MEDS: ASPIRIN EC 81MG TABLET 81 MG PO (09:39)
[2025-07-02] MEDS: IRBESARTAN 300MG TABLET 300 MG PO (09:39)
--- NOTE | 2025-07-02 09:39 | P.DS_ITS ---
<Statement entered by Germán Vann MD - 07/05/25 11:53> Discussed case with nurse practitioner, Agree with exam findings and care plan as documented. General Admission date:: 07/01/25 Discharge date: 07/02/25 HPI HPI HPI: Ms. Warren is a 55-year-old female who underwent a right groin access bilateral iliofemoral runoff with right external iliac artery stenting, left common artery stenting, and left external iliac artery stenting. Patient has a primary medical history of CAD, PAD, hypertension, hyperlipidemia, claudication, and tobacco use. Patient tolerated procedure well, admission was requested from cardiology due to risk of bleeding. Hospital Course Hospital Course Hospital Course: Ms. Warren is a 55-year-old female who underwent a right groin access bilateral iliofemoral runoff with right external iliac artery stenting, left common artery stenting, and left external iliac artery stenting. Patient has a primary medical history of CAD, PAD, hypertension, hyperlipidemia, claudication, and tobacco use. Patient tolerated procedure well, admission was requested from cardiology due to risk of bleeding. I agreed to accept the patient for further monitoring, plan of care was as follows: #S/p bilateral iliofemoral runoff with stenting x 3 #Abnormal EDGAR #PAD ? Patient was admitted overnight status post bilateral iliofemoral runoff with stenting x 3. Patient has right groin cath site, remained clean dry and intact with no issues of bleeding. She currently takes DAPT therapy with Effient 10 mg daily and aspirin 81 mg daily. She will continue on DAPT at discharge. Per procedure report, if patient continues to experience right leg claudication she may be a candidate for right femoral artery endarterectomy. ? Will continue patient's metoprolol 50 mg daily, irbesartan?HCTZ 1 tab daily, and amlodipine 5 mg daily. Increase atorvastatin from 40 mg to 80 mg at bedtime. ? Patient remained hemodynamically stable during admission, cardiac telemetry showed NSR. Day of discharge patient kidney function WNL, LDL 91 (goal below 55), no anemia. #Tobacco use disorder ? Patient states she is everyday smoker, smoking cessation discussed. Nicotine patches ordered as needed. Exam Data for Last 24 hours Vital signs and Labs for Last 24 Hours: Temp Pulse Resp BP Pulse Ox O2 Del Method 97.5 F L 85 18 138/88 98 Room Air 07/02/25 08:00 07/02/25 08:00 07/02/25 08:00 07/02/25 08:00 07/02/25 08:00 07/02/25 08:00 Laboratory Results - last 24 hr 07/01/25 10:45: Activated Clotting Time 292 H* 07/02/25 06:02: WBC 9.7, RBC 4.76, Hgb 13.9, Hct 41.9, MCV 88.0, MCH 29.2, MCHC 33.2, RDW 12.9, Plt Count 361, MPV 8.7, Neut % (Auto) 69.9, Lymph % (Auto) 18.4, [place] % (Auto) 7.7, Eos % (Auto) 2.9, Baso % (Auto) 0.8, Neut # (Auto) 6.8, Lymph # (Auto) 1.8, [place] # (Auto) 0.8, Eos # (Auto) 0.3, Baso # (Auto) 0.1, Sodium 134 L, Potassium 3.9, Chloride 98, Carbon Dioxide 29, Anion Gap 10.9, BUN 16, Creatinine 1.00, Estimated Creat Clear 75, Estimated GFR 57 L, Est GFR ( Amer) 69, Glucose 100, Calcium 9.1, Total Bilirubin 0.5, Direct Bilirubin 0.0, Conjugated Bilirubin 0.0, Indirect Bilirubin 0.5, Unconjugated Bilirubin 0.5, AST 23, ALT 19, Alkaline Phosphatase 84, Total Protein 6.8, Albumin 4.0, Triglycerides 108, Cholesterol 185, LDL Cholesterol Direct 91.99 L, VLDL Cholesterol 22, HDL Cholesterol 66 H, Cholesterol/HDL Ratio 2.8 Temp Pulse Resp BP Pulse Ox O2 Del Method 97.5 F L 85 18 138/88 98 Room Air 07/02/25 08:00 07/02/25 08:00 07/02/25 08:00 07/02/25 08:00 07/02/25 08:00 07/02/25 08:00 Laboratory Results - last 24 hr 07/01/25 10:45: Activated Clotting Time 292 H* 07/02/25 06:02: WBC 9.7, RBC 4.76, Hgb 13.9, Hct 41.9, MCV 88.0, MCH 29.2, MCHC 33.2, RDW 12.9, Plt Count 361, MPV 8.7, Neut % (Auto) 69.9, Lymph % (Auto) 18.4, [place] % (Auto) 7.7, Eos % (Auto) 2.9, Baso % (Auto) 0.8, Neut # (Auto) 6.8, Lymph # (Auto) 1.8, [place] # (Auto) 0.8, Eos # (Auto) 0.3, Baso # (Auto) 0.1, Sodium 134 L, Potassium 3.9, Chloride 98, Carbon Dioxide 29, Anion Gap 10.9, BUN 16, Creatinine 1.00, Estimated Creat Clear 75, Estimated GFR 57 L, Est GFR ( Amer) 69, Glucose 100, Calcium 9.1, Total Bilirubin 0.5, Direct Bilirubin 0.0, Conjugated Bilirubin 0.0, Indirect Bilirubin 0.5, Unconjugated Bilirubin 0.5, AST 23, ALT 19, Alkaline Phosphatase 84, Total Protein 6.8, Albumin 4.0, Triglycerides 108, Cholesterol 185, LDL Cholesterol Direct 91.99 L, VLDL Cholesterol 22, HDL Cholesterol 66 H, Cholesterol/HDL Ratio 2.8 I & O for Last 24 hours: Intake & Output 06/29/25 06/30/25 07/01/25 07/02/25 23:59 23:59 23:59 23:59 Intake Total 254.167 / 494.167 760 / 760 Output Total 800 / 800 0 / 0 Balance -545.833 / -305.833 760 / 760 Weight 75.75 kg 75.71 kg Intake & Output 06/29/25 06/30/25 07/01/25 07/02/25 23:59 23:59 23:59 23:59 Intake Total 254.167 / 494.167 760 / 760 Output Total 800 / 800 0 / 0 Balance -545.833 / -305.833 760 / 760 Weight 167 lb 166 lb 14.592 oz Constitutional Constitutional: no acute distress, average body habitus and cooperative *Routine HEENT Exam Head: Present normocephalic and atraumatic Eye: Present EOMI ENT: Present mucous membranes moist *Routine Neck Exam Neck: Present supple, full ROM, JVD and carotid bruit *Routine Respiratory Exam Respiratory: Present CTA bilaterally, normal respiratory effort, able to speak in complete sentences and symmetric chest movement; Absent wheezes or crackles *Routine Cardiovascular Exam Cardiovascular: Present RRR, Normal S1 and Normal S2; Absent murmur *Routine Abdominal Exam Abdominal: Present soft and normoactive bowel sounds; Absent tenderness or distended *Routine Rectal Exam Patient deferred: visual exam *Routine Exam Patient deferred: external exam *Routine Extremities Exam Extremities: Present full ROM, pulses intact and normal capillary refill; Absent cyanosis, clubbing or edema *Routine Skin Exam Skin: Present intact, dry and warm; Absent erythema or rash *Routine Neurological Exam Neurological: Present alert, oriented X3, CN II-XII intact, vision grossly intact, hearing grossly intact and normal speech; Absent sensory deficit or motor deficit Routine Psychiatric Exam Psychiatric: Present normal affect Results Data Completed and Pending Labs on day of discharge: Labs from last 24 hours 07/02/25 07/01/25 06:02 10:45 WBC 9.7 RBC 4.76 Hgb 13.9 Hct 41.9 MCV 88.0 MCH 29.2 MCHC 33.2 RDW 12.9 Plt Count 361 MPV 8.7 Neut % (Auto) 69.9 Lymph % (Auto) 18.4 [place] % (Auto) 7.7 Eos % (Auto) 2.9 Baso % (Auto) 0.8 Neut # (Auto) 6.8 Lymph # (Auto) 1.8 [place] # (Auto) 0.8 Eos # (Auto) 0.3 Baso # (Auto) 0.1 Activated Clotting Time 292 H* Sodium 134 L Potassium 3.9 Chloride 98 Carbon Dioxide 29 Anion Gap 10.9 BUN 16 Creatinine 1.00 Estimated Creat Clear 75 Estimated GFR 57 L Est GFR ( Amer) 69 Glucose 100 Calcium 9.1 Total Bilirubin 0.5 Direct Bilirubin 0.0 Conjugated Bilirubin 0.0 Indirect Bilirubin 0.5 Unconjugated Bilirubin 0.5 AST 23 ALT 19 Alkaline Phosphatase 84 Total Protein 6.8 Albumin 4.0 Triglycerides 108 Cholesterol 185 LDL Cholesterol Direct 91.99 L VLDL Cholesterol 22 HDL Cholesterol 66 H Cholesterol/HDL Ratio 2.8 DS: Diagnosis Discharge Diagnosis (1) Status post aortography with runoff: Status: Acute Code(s): Z98.890 - Other specified postprocedural states (2) Angina pectoris: Status: Acute Code(s): I20.9 - Angina pectoris, unspecified (3) Abnormal ankle brachial index (EDGAR): Status: Acute Code(s): R68.89 - Other general symptoms and signs (4) Tobacco use: Status: Acute Code(s): Z72.0 - Tobacco use Meds Home Medications and Allergies Home Medications ?Medication ?Instructions ?Recorded ?Confirmed ?Type aspirin 81 mg tablet,delayed 81 mg PO DAILY #30 tabs 0 05/19/25 07/01/25 Rx release (Adult Aspirin Regimen) metoprolol succinate 50 mg 50 mg PO HS #90 tabs 07/01/25 Rx tablet,extended release 24 hr amlodipine 5 mg tablet 5 mg PO DAILY #90 tabs 06/0307/01/25 Rx prasugrel HCl 10 mg tablet 10 mg PO DAILY 30 days #30 tabs 06/21/25 07/01/25 Rx (Effient) varenicline tartrate 1 mg tablet 1 mg PO BID 12 weeks #168 tabs 06/28/25 07/01/25 Rx (Chantix Continuing Month Box) irbesartan 300 1 tab PO DAILY 300/12.5MG 07/01/25 History mg-hydrochlorothiazide 12.5 mg tablet atorvastatin 40 mg tablet 80 mg (2 x 40 mg) PO HS 30 d ays 07/02/25 Rx #60 tabs New Prescriptions to Start Prescriptions: Maria Guadalupe Encarnacion Allergies Allergy/AdvReac Type Severity Reaction Status Date / Time No Known Allergies Allergy Verified 07/01/25 08:54 Discharge Plan Disposition Patient Disposition: Home, Self-Care Condition: Fair Follow up Plan Follow up with: Shaym Luu MD [Staff Physician, Cardiology] - 07/08/25 10:45 am Martita Perez APRN [Primary Care Provider, Family Practice] - 07/06/25 2:00 pm Prescriptions/Medication Reconciliation: New atorvastatin 40 mg Tablet 80 mg PO HS 30 Days Qty: 60 0RF Continued varenicline tartrate [Chantix Continuing Month Box] 1 mg tablet 1 mg PO BID 84 Days Qty: 168 0RF aspirin [Adult Aspirin Regimen] 81 mg tablet,delayed release (DR/EC) 81 mg PO DAILY Qty: 30 5RF metoprolol succinate 50 mg tablet extended release 24 hr 50 mg PO HS Qty: 90 3RF amlodipine 5 mg tablet 5 mg PO DAILY Qty: 90 3RF prasugrel HCl [Effient] 10 mg Tablet 10 mg PO DAILY 30 Days Qty: 30 3RF irbesartan-hydrochlorothiazide 300-12.5 mg tablet 1 tab PO DAILY Discontinued atorvastatin 40 mg tablet 40 mg PO DAILY Qty: 90 3RF Other Ambulatory Orders: Basic Metabolic Panel (Routine) Timeframe: 20250708 Facility: [facility] - Location: Laboratory Ordered By: Shyam Luu Comprehensive Metabolic Panel (Routine) Timeframe: 20250708 Facility: [facility] - Location: Laboratory Ordered By: Shyam Luu Problem Reconciliation Problems Reviewed?: Yes Patient Discharge Instructions ACTIVITY: Ambulate as tolerated and No heavy lifting DIET: continue same diet Patient Instructions: Smoking Cessation Drugs: Nicotine Replacement Products, DI for Peripheral Vascular (Arterial) Disease, DI for Moderate Sedation Print Language: Tuvaluan Providers Primary Care Provider: Martita Perez Admit Provider: Germán Vann Attending Provider: Shyam Luu
--- NOTE | 2025-07-02 10:34 | EXP.CARD.CON ---
History of Present Illness History of Present Illness Consult date: 07/02/25 Requesting physician: Germán Vann Chief complaint: PAD status post stenting. History of present illness: This is a 55-year-old female who underwent bilateral lower extremity runoff with right groin access. The patient had stenting to the right external iliac artery, left common artery and left external iliac artery. She tolerated the procedure well. She denies any groin pain or tenderness this morning. She denies any chest pain or pressure. She denies any shortness of breath or edema. She denies any fever, chills, nausea, vomiting, diarrhea, PND or orthopnea. [facility] Disclaimer: The information contained in this section may have been updated after the patient was seen, as this information can be updated by other users. Medical History (Updated 07/02/25 @ 10:37 by Lou Barraza APRN) Coronary artery disease Angina pectoris Abnormal ankle brachial index (EDGAR) PAD (peripheral artery disease) Atypical angina Abnormal stress test HLD (hyperlipidemia) Abnormal echocardiogram Fatigue Claudication Encounter to establish care Depression Surgical History (Updated 07/01/25 @ 15:01 by Maria Guadalupe Gonzales APRN) History of surgery of liver Family History Other No significant family history Social History (Updated 07/01/25 @ 13:26 by Usha Gerard RN) Smoking Status: Current every day smoker alcohol intake: never substance use type: denies use current occupational status: employed and other Travel in the last 8 weeks?: None Review of Systems Review of Systems Review of systems:: pertinent systems reviewed and negative unless documented below Constitutional Constitutional: Reports system reviewed and no additional complaints, except as documented Eyes Eyes: Reports system reviewed and no additional complaints, except as documented ENT Ears, Nose, Mouth, and Throat: Reports system reviewed and no additional complaints, except as documented *Cardiovascular Cardiovascular: Reports system reviewed and no additional complaints, except as documented *Respiratory Respiratory: Reports system reviewed and no additional complaints, except as documented *Gastrointestinal Gastrointestinal: Reports system reviewed and no additional complaints, except as documented *Genitourinary Genitourinary: Reports system reviewed and no additional complaints, except as documented *Musculoskeletal Musculoskeletal: Reports system reviewed and no additional complaints, except as documented Integumentary/Breasts Skin/Breast: Reports system reviewed and no additional complaints, except as documented *Neurologic Neurologic: Reports system reviewed and no additional complaints, except as documented Psychiatric Psychiatric: Reports system reviewed and no additional complaints, except as documented Endocrine Endocrine: Reports system reviewed and no additional complaints, except as documented Hematologic/Lymphatic Hematologic/Lymphatic: Reports system reviewed and no additional complaints, except as documented Allergic/Immunologic Allergic/Immunologic: Reports system reviewed and no additional complaints, except as documented Exam Data for Last 24 hours Vital signs and Labs for Last 24 Hours: Temp Pulse Resp BP Pulse Ox O2 Del Method 97.5 F L 85 18 138/88 98 Room Air 07/02/25 08:00 07/02/25 08:00 07/02/25 08:00 07/02/25 08:00 07/02/25 08:00 07/02/25 08:00 Laboratory Results - last 24 hr 07/01/25 10:45: Activated Clotting Time 292 H* 07/02/25 06:02: WBC 9.7, RBC 4.76, Hgb 13.9, Hct 41.9, MCV 88.0, MCH 29.2, MCHC 33.2, RDW 12.9, Plt Count 361, MPV 8.7, Neut % (Auto) 69.9, Lymph % (Auto) 18.4, Riley % (Auto) 7.7, Eos % (Auto) 2.9, Baso % (Auto) 0.8, Neut # (Auto) 6.8, Lymph # (Auto) 1.8, Riley # (Auto) 0.8, Eos # (Auto) 0.3, Baso # (Auto) 0.1, Sodium 134 L, Potassium 3.9, Chloride 98, Carbon Dioxide 29, Anion Gap 10.9, BUN 16, Creatinine 1.00, Estimated Creat Clear 75, Estimated GFR 57 L, Est GFR ( Amer) 69, Glucose 100, Calcium 9.1, Total Bilirubin 0.5, Direct Bilirubin 0.0, Conjugated Bilirubin 0.0, Indirect Bilirubin 0.5, Unconjugated Bilirubin 0.5, AST 23, ALT 19, Alkaline Phosphatase 84, Total Protein 6.8, Albumin 4.0, Triglycerides 108, Cholesterol 185, LDL Cholesterol Direct 91.99 L, VLDL Cholesterol 22, HDL Cholesterol 66 H, Cholesterol/HDL Ratio 2.8 I & O for Last 24 hours: Intake & Output 06/29/25 06/30/25 07/01/25 07/02/25 23:59 23:59 23:59 23:59 Intake Total 254.167 / 494.167 760 / 760 Output Total 800 / 800 0 / 0 Balance -545.833 / -305.833 760 / 760 Weight 167 lb 166 lb 14.592 oz Constitutional Constitutional: no acute distress and average body habitus *Routine HEENT Exam Head: Present normocephalic and atraumatic ENT: Present mucous membranes moist *Routine Neck Exam Neck: Present supple, full ROM and normal carotid upstroke; Absent JVD, carotid bruit or lymphadenopathy *Routine Respiratory Exam Respiratory: Present CTA bilaterally, normal respiratory effort, able to speak in complete sentences and symmetric chest movement *Routine Cardiovascular Exam Cardiovascular: Present RRR, Normal S1 and Normal S2; Absent murmur or gallop *Routine Abdominal Exam Abdominal: Present soft and normoactive bowel sounds; Absent tenderness, distended or organomegaly *Routine Extremities Exam Extremities: Present full ROM, pulses intact and normal capillary refill; Absent cyanosis, clubbing or edema *Routine Skin Exam Skin: Present intact and warm; Absent erythema *Routine Neurological Exam Neurological: Present alert, oriented X3 and CN II-XII intact; Absent sensory deficit or motor deficit Routine Psychiatric Exam Psychiatric: Present normal affect Meds Home Medications and Allergies Home Medications ?Medication ?Instructions ?Recorded ?Confirmed ?Type aspirin 81 mg tablet,delayed 81 mg PO DAILY #30 tabs 05/19/25 07/01/25 Rx release (Adult Aspirin Regimen) metoprolol succinate 50 mg 50 mg PO HS #90 tabs 05/20/25 07/01/25 Rx tablet,extended release 24 hr amlodipine 5 mg tablet 5 mg PO DAILY #90 tabs 06/03/25 07/01/25 Rx prasugrel HCl 10 mg tablet 10 mg PO DAILY 30 days #30 tabs 06/21/25 07/01/25 Rx (Effient) varenicline tartrate 1 mg tablet 1 mg PO BID 12 weeks #168 tabs 06/28/25 07/01/25 Rx (Chantix Continuing Month Box) irbesartan 300 1 tab PO DAILY 300/12.5MG 07/01/25 07/01/25 History mg-hydrochlorothiazide 12.5 mg tablet atorvastatin 40 mg tablet 80 mg (2 x 40 mg) PO HS 30 days 07/02/25 Rx #60 tabs New Prescriptions to Start Prescriptions: atorvastatin ChristianMaria Guadalupe Allergies Allergy/AdvReac Type Severity Reaction Status Date / Time No Known Allergies Allergy Verified 07/01/25 08:54 Assessment and Plan *Assessment and plan (1) PAD (peripheral artery disease): Status: Acute Category: Medical Code(s): I73.9 - Peripheral vascular disease, unspecified (2) Coronary artery disease: Status: Acute Qualifiers: Coronary Disease-Associated Artery/Lesion type: [place] artery [place] vs. transplanted heart: [place] heart Associated angina: without angina Qualified Code(s): I25.10 - Atherosclerotic heart disease of [place] coronary artery without angina pectoris Category: Medical Code(s): I25.10 - Atherosclerotic heart disease of [place] coronary artery without angina pectoris (3) Status post aortography with runoff: Status: Acute Category: Surgical Code(s): Z98.890 - Other specified postprocedural states (4) HLD (hyperlipidemia): Status: Acute Qualifiers: Hyperlipidemia type: mixed hyperlipidemia Qualified Code(s): E78.2 - Mixed hyperlipidemia Category: Medical Code(s): E78.5 - Hyperlipidemia, unspecified (5) Hypertension: Status: Acute Qualifiers: Hypertension type: renovascular hypertension Qualified Code(s): I15.0 - Renovascular hypertension Category: Medical Code(s): I10 - Essential (primary) hypertension (6) Tobacco use: Status: Acute Category: Social Hx Code(s): Z72.0 - Tobacco use Plan Plan: 1. The patient was admitted to the hospital after runoff procedure yesterday. She had 1 stent placed to the right external iliac artery, 1 stent to the left common artery and 1 stent to the left external iliac artery. She tolerated the procedure well. No groin pain or tenderness noted. 2. The patient will be on dual antiplatelet therapy with aspirin and Effient. No low-dose Xarelto at this time as she is on dual antiplatelet therapy for attempting coronary intervention which was unsuccessful. 3. CAD is present. Patient had recent coronary angiography with attempted revascularization of the chronically occluded right coronary artery which was unsuccessful in establishing antegrade flow. She will need to remain on Effient and aspirin for dual antiplatelet therapy. 4. Her blood pressure is well-controlled. Continue Norvasc, irbesartan HCT, metoprolol. 5. Her LDL goal is less than 55. Her LDL is 91. Will increase her Lipitor to 80 mg p.o. nightly. 6. Tobacco cessation is highly advised and counseled. 7. No further recommendations at this time from a cardiac standpoint. The patient can be discharged home today from a cardiac standpoint. The patient will need to be discharged on the following cardiac medications: Norvasc 5 mg daily Aspirin 81 mg daily Atorvastatin 80 mg p.o. nightly Irbesartan HCT 300/12.5 mg daily Toprol XL 50 mg daily Effient 10 mg daily Thank you for the opportunity to help participate in the care of this patient. All recommendations and orders are per Dr. Dotson.
[2025-07-02 13:23] LABS: CATHL Activated Clotting Time 202 SEC (74-125)
--- NOTE | 2025-07-05 10:02 | SW/DCPLANNER ---
Spoke with patient on the phone. Patient stated that she is doing good. Patient stated that she passed out 2 times and she has stopped taking her blood pressure medicine due to her blood pressure was too low. Patient stated that she is aware of her upcoming appointments. Patient stated that she was able to get her new medicine picked up from clinic pharmacy. Patient stated that she has no concerns or questions at this time. Andrey Chapa
== END 2025-07-02 10:36 | disposition home or self-care (01) ==
LOC: 2ND 13:09
PROVIDERS: Nurse Practitioner Family; Admitting Provider Internal Medicine Adolescent Medicine; PCP Nurse Practitioner Family; Visit Provider Internal Medicine
DX: I70.203 Unspecified atherosclerosis of native arteries of extremities, bilateral legs (principal); I25.119 Atherosclerotic heart disease of native coronary artery with unspecified angina pectoris; I10 Essential (primary) hypertension; E78.5 Hyperlipidemia, unspecified; J43.9 Emphysema, unspecified; F17.200 Nicotine dependence, unspecified, uncomplicated; Z79.899 Other long term (current) drug therapy; Z79.82 Long term (current) use of aspirin; Z79.51 Long term (current) use of inhaled steroids
CPT/HCPCS: 36415; 37221; 37223; 80048; 80061; 80076; 85025; 85347; C1725; C1769; C1876; C1894; G0378; J1200; J1644; J2720; J3010; J7040; Q9966

== ENCOUNTER 2025-07-02 14:34 | Emergency (ER) | payer MEDICAID, SELFPAY ==
[2025-07-02] VITALS (9 sets, daily range): BP systolic 100–149; BP diastolic 63–94; PULSE 78–102; RESP 12–18; TEMP 36.6; O2SAT 96–100; BMI 28.3
--- NOTE | 2025-07-02 14:44 | ECG_ITS ---
APPROVED REPORT Exam: Resting ECG HR:99 bpm ECG Measurements Heart Rate [address] 146 P 75 QRSd 86 QRS 71 QT 348 T 13 QTc 404 Conclusion SINUS RHYTHM NONSPECIFIC ST & T-WAVE ABNORMALITY BORDERLINE ECG Electronically signed by : LOUIS TREJO, 07/02/2025 16:06:21
[2025-07-02 14:53] LABS: POC Glucose,Bedside 110 gm/dL (70-110)
[2025-07-02 15:01] LABS: Hematocrit 40.0 % (37.0-47.0); Hemoglobin 13.7 g/dL (12.2-16.2); Immature Granulocytes % 0.4 %; Mean Corpuscular HGB Conc 34.3 g/dL (31.8-35.4); Mean Corpuscular Hemoglobin 30.3 pg (27.0-31.2); Mean Corpuscular Volume 88.5 fl (81-99); Nucleated Red Blood Cells % 0 %; Platelet Count 396 K/mm3 (142-424); Red Blood Count 4.52 M/mm3 (4.20-5.40); Red Cell Distribution Width-SD 42.3 fL; White Blood Count 12.8 K/mm3 (4.8-10.8)
[2025-07-02 15:14] LABS: Alanine Aminotransferase 22 U/L (12-78); Albumin Level 4.6 g/dl (3.5-5.0); Albumin/Globulin Ratio 1.7 (1.1-1.8); Alkaline Phosphatase 83 U/L (38-126); Anion Gap 14.9 mEq/L (5-15); Aspartate Amino Transferase 32 U/L (14-36); Bilirubin,Total 0.8 mg/dl (0.2-1.3); Blood Urea Nitrogen 22 mg/dl (7-17); Calcium 9.7 mg/dl (8.4-10.2); Carbon Dioxide 27 mmol/L (22.0-30.0); Chloride 97 mmol/L (98-107); Creatinine Clearance Estimated 46 mL/min (50-200); Creatinine,Serum 1.60 mg/dl (0.52-1.04); Estimated Glomerular Filt Rate 33 ml/min (>60); GFR (African American) 40 ML/MIN (>60); Globulin 2.7 g/dL (1.3-3.2); Glucose 114 mg/dl (74-100); Potassium 3.9 mmoL/L (3.5-5.1); Sodium 135 mmol/L (136-145); Total Protein,Serum 7.3 g/dl (6.3-8.2)
[2025-07-02 15:27] LABS: Troponin I < 0.01 ng/ml (0.00-0.034)
--- NOTE | 2025-07-02 15:37 | HMH.EDGENADL ---
Discharge Plan Disposition Patient Disposition: Home, Self-Care Condition: Good Prescriptions Prescriptions: No Action varenicline tartrate [Chantix Continuing Month Box] 1 mg tablet 1 mg PO BID 84 Days Qty: 168 0RF aspirin [Adult Aspirin Regimen] 81 mg tablet,delayed release (DR/EC) 81 mg PO DAILY Qty: 30 5RF metoprolol succinate 50 mg tablet extended release 24 hr 50 mg PO HS Qty: 90 3RF amlodipine 5 mg tablet 5 mg PO DAILY Qty: 90 3RF prasugrel HCl [Effient] 10 mg Tablet 10 mg PO DAILY 30 Days Qty: 30 3RF irbesartan-hydrochlorothiazide 300-12.5 mg tablet 1 tab PO DAILY atorvastatin 40 mg Tablet 80 mg PO HS 30 Days Qty: 60 0RF Referrals Follow up/Referrals: Martita Perez APRN [Primary Care Provider, Family Practice] - See instructions Activity Restrictions/Add. Instructions Additional Instructions/Restrictions: Your workup here in the emergency department was negative. Follow-up with cardiology as scheduled. Return to the emergency department for any acute or worsening symptoms. You do have a thyroid nodule which will need likely an outpatient ultrasound you can follow-up with your primary care provider to get this scheduled. Clinical Impressions Clinical Impression: Syncope Instructions Patient Instructions: DI for Syncope in Adults (Fainting), DI for Syncope in Children (Fainting) Print Language Print Language: Honduran Discharge ED Provider: Yaritza Medrano Adult HPI General Chief complaint: Syncope Stated complaint: poss seizure Time Seen by Provider: 07/02/25 15:37 Mode of Arrival: Wheelchair Source of Information: Patient and Spouse Description of Symptoms (Recalled from ER Triage Doc. by RN): Pt was at [facility] this AM and stents placed to bilateral legs and was discharged around lunch time. Pt states she also had a heart cath this AM. About 1 hour [employer]UNTING SAL[employer] patient states she started to become lightheaded and dizzy, Pt was sitting in the kitchen chair and went unresponsive . Spouse states he held her in the chair to prevent her from falling. History of Present Illness HPI narrative: Patient is a 55-year-old female with a past medical history of hypertension, coronary artery blockage with previous cath 2 weeks ago who was discharged from the hospital today after getting lower extremity stents for peripheral artery disease who presents to the emergency department with an episode of syncope. Patient states that she was sitting in her kitchen chair when she started to feel lightheaded patient had a syncopal episode. Per who witnessed the event patient was out for about 1 minute patient returned to her baseline afterwards. Patient did not have any tunnel vision did not have any chest pain or shortness of breath during the event. Patient states that she has passed out before and this felt similar. States she did not hit her head. Patient states that she did eat today, has had normal intake otherwise. Patient denies any abdominal pain or diarrhea had 1 episode of vomiting and route. Patient denies any headache vision changes or other neurologic symptoms such as numbness or weakness. Related Data Home Medications ?Medication ?Instructions ?Recorded ?Confirmed irbesartan 300 1 tab PO DAILY 300/12.5MG 07/01/25 07/01/25 mg-hydrochlorothiazide 12.5 mg tablet Previous Rx's ?Medication ?Instructions ?Recorded aspirin 81 mg tablet,delayed 81 mg PO DAILY #30 tabs 05/19/25 release (Adult Aspirin Regimen) metoprolol succinate 50 mg 50 mg PO HS #90 tabs 05/20/25 tablet,extended release 24 hr amlodipine 5 mg tablet 5 mg PO DAILY #90 tabs 06/03/25 prasugrel HCl 10 mg tablet 10 mg PO DAILY 30 days #30 tabs 06/21/25 (Effient) varenicline tartrate 1 mg tablet 1 mg PO BID 12 weeks #168 tabs 06/28/25 (Chantix Continuing Month Box) atorvastatin 40 mg tablet 80 mg (2 x 40 mg) PO HS 30 days 07/02/25 #60 tabs Allergies Allergy/AdvReac Type Severity Reaction Status Date / Time No Known Allergies Allergy Verified 07/01/25 08:54 [facility] Disclaimer: The information contained in this section may have been updated after the patient was seen, as this information can be updated by other users. Medical History (Updated 07/02/25 @ 18:13 by Yaritza Medrano DO) Coronary artery disease Angina pectoris Abnormal ankle brachial index (EDGAR) PAD (peripheral artery disease) Atypical angina Abnormal stress test HLD (hyperlipidemia) Abnormal echocardiogram Fatigue Claudication Encounter to establish care Depression Surgical History History of surgery of liver Family History Other No significant family history Social History Smoking Status: Current every day smoker alcohol intake: never substance use type: denies use current occupational status: employed and other Travel in the last 8 weeks?: None Have you lived/traveled outside US in past 30 days?: No Contact w/someone who lives/traveled outside US past 30 days?: No Exposure to someone with infectious disease in past 14 days?: No Do you have a fever (greater than 100.4 F or 38 C)?: No Have you tested positive for COVID-19?: No Exposed to someone with COVID-19 in past 14 days?: No Do you have a sore throat?: No Do you have a cough?: No Do you have any weakness?: No Do you have any diarrhea?: No Are you experiencing any unusual bleeding?: No Do you have any muscle aches/pain?: No Do you have any abdominal pain?: No Are you experiencing loss of taste or smell?: No Other Medical History Have you received the Flu Vaccine for this season: No Have you received the Pneumonia Vaccine: No ROS Obtained: Yes All systems reviewed & no additional complaints except as documented and Yes Systems reviewed as appropriate & no additional complaints except as documented Physical Exam General General appearance: alert and in no apparent distress Head Head exam: atraumatic, normocephalic and normal inspection Eye Eye exam: Present normal appearance, PERRL and EOMI; Absent scleral icterus ENT ENT exam: Present normal exam and normal external ear exam Neck Neck exam: Present normal inspection and full ROM Chest Chest inspection: Present normal inspection and symmetric chest wall rise Respiratory Respiratory exam: Present normal lung sounds bilaterally; Absent respiratory distress or wheezes Cardiovascular Cardiovascular exam: Present regular rate, normal rhythm and normal heart sounds Abdominal Exam Abdominal exam: Present soft and distention; Absent tenderness, guarding or rebound Extremities Exam Extremities exam: Present normal inspection and full ROM Back Exam Back exam: Present normal inspection and full ROM Neurological Exam Neurological exam: Present alert, oriented X3 and CN II-XII intact; Absent motor sensory deficit Psychiatric Psychiatric exam: Present normal affect and normal mood Skin Skin exam: Present warm and dry Medical Decision Making Medical Records Medical records reviewed: Yes I reviewed the patient's medical records. Screening: Per USPSTF and CDC recommendations, given the prevalence of disease in our region, it is our hospital?s policy to screen for HIV and viral Hepatitis for all patients aged 18 and over and those with ongoing risk factors. Bryan Inquiry Pt receiving controlled substance: No Vital Signs: 07/02/25 14:39 07/02/25 15:38 07/02/25 15:39 Temperature 97.8 F Temperature Source Temporal Artery Scan Pulse Rate 102 H Pulse Rate [Right] 96 H Respiratory Rate 18 16 Blood Pressure 136/85 Blood Pressure [Right Arm] 100/72 L Blood Pressure Mean 98 Blood Pressure Mean [Right Arm] 81 Blood Pressure Source [Right Arm] Automatic Cuff Blood Pressure Position [Right Arm] Sitting 02 Sat by Pulse Oximetry 100 99 98 Oxygen Delivery Method Room Air Room Air 07/02/25 16:01 07/02/25 16:30 07/02/25 17:00 Temperature Temperature Source Pulse Rate 78 83 86 Pulse Rate [Right] Respiratory Rate 15 15 14 Blood Pressure 115/63 149/94 H Blood Pressure [Right Arm] Blood Pressure Mean Blood Pressure Mean [Right Arm] Blood Pressure Source [Right Arm] Blood Pressure Position [Right Arm] 02 Sat by Pulse Oximetry 97 96 99 Oxygen Delivery Method Room Air Room Air Room Air Lab Data Lab results reviewed: Yes I reviewed the patient's lab results. Lab Results 07/02/25 13:42: WBC 12.8 H D, RBC 4.52, Hgb 13.7, Hct 40.0, MCV 88.5, MCH 30.3, MCHC 34.3, RDW 13.1, Plt Count 396, MPV 8.9, Neut % (Auto) 75.6, Lymph % (Auto) 13.2, Blair % (Auto) 9.1, Eos % (Auto) 1.2, Baso % (Auto) 0.5, Neut # (Auto) 9.7 H, Lymph # (Auto) 1.7, Blair # (Auto) 1.2 H, Eos # (Auto) 0.2, Baso # (Auto) 0.1, Sodium 135 L, Potassium 3.9, Chloride 97 L, Carbon Dioxide 27, Anion Gap 14.9, BUN 22 H D, Creatinine 1.60 H D, Estimated Creat Clear 46, Estimated GFR 33 L, Est GFR ( Amer) 40 L D, Glucose 114 H, Calcium 9.7, Total Bilirubin 0.8, AST 32 D, ALT 22, Alkaline Phosphatase 83, Troponin I < 0.01, Total Protein 7.3, Albumin 4.6 D, Globulin 2.7, Albumin/Globulin Ratio 1.7 07/02/25 14:46: POC Glucose 110 07/02/25 14:52: D-Dimer 0.87 H 07/02/25 16:52: Troponin I < 0.01 07/02/25 13:42 07/02/25 13:42 Orders (Tests/Meds): ED MEDICATIONS Generic Name Dose Route Start Last Admin Trade Name Freq PRN Reason Stop Dose Admin Sodium Chloride 10 ml 07/02/25 17:08 07/02/25 17:09 Sodium Chloride 0.9% 10ml Syr (Rad Only) IV 08/01/25 17:07 10 ml NEEDED PRN Administration Maintain IV Site Discontinued Medications Generic Name Dose Route Start Last Admin Trade Name Freq PRN Reason Stop Dose Admin Lactated Ringer's 1,000 mls @ 999 mls/hr 07/02/25 15:55 07/02/25 17:21 Lactated Ringer's 1000 Ml Bag IV 07/02/25 16:55 Infused .Q1H1M ONE Infusion Iopamidol 150 ml 07/02/25 17:08 07/02/25 17:09 Iopamidol-370 (76%);100ml Bottle IV 07/02/25 17:09 150 ml ONCE ONE Administration Sodium Chloride 100 ml 07/02/25 17:08 07/02/25 17:09 0.9 % Sodium Chloride 50 Ml Vial IV 07/02/25 17:09 100 ml ONCE ONE Administration ORDERS Category Date Time Status CT angio chest PE protocol Stat Cat Scan 07/02/25 16:[address] angio head Stat Cat Scan 07/02/25 16:[address] angio neck Stat Cat Scan 07/02/25 16:[address] head/brain wo con Stat Cat Scan 07/02/25 15:55 Completed CXR 2 view (NOT portable) [XR chest 2V] Stat Exams 07/02/25 15:56 Completed Complete Blood Count Auto Diff Stat Lab 07/02/25 13:42 Completed Comprehensive Metabolic Panel Stat Lab 07/02/25 13:42 Completed D-Dimer Stat Lab 07/02/25 14:52 Completed POC Glucose,Bedside Routine Lab 07/02/25 14:46 Completed Troponin I Q3H Lab 07/02/25 16:52 Completed Troponin I Q3H Lab 07/02/25 20:45 Ordered Troponin I Stat Lab 07/02/25 13:42 Completed Medical Decision Narrative: Is a 55-year-old female with a past med history of coronary artery disease, peripheral artery disease who presented to the emergency department with an episode of syncope. On arrival, patient was hemodynamically stable with a normal vital signs. Differential includes but not limited to: Intracranial pathology, significant arterial stenosis, ACS/PA, orthostatic syncope, vasovagal syncope, dehydration, amongst others. On exam, patient had an unremarkable exam patient had a nonfocal neuroexam. Given patient's syncope with a history of significant coronary artery disease and peripheral artery disease, CT head CTA head and neck were ordered as well as cardiac workup. Labs were reviewed and interpreted by myself: CBC showed mild leukocytosis of 12, hemoglobin was stable. CMP with mildly elevated creatinine of 1.6 patient's baseline appears to be 0.9. Initial troponin less than 0.01, second troponin less than 0.01. D-dimer 0.87. EKG was reviewed and interpreted by myself and showed normal sinus rhythm without acute ST or T wave changes concerning for ischemia. Chest x-ray was reviewed and interpreted by myself and showed no acute focal consolidation, pneumothorax, pleural effusion or other acute cardiopulmonary process. CT head, CTA head and neck as well as CT chest showed no acute pathology or significant stenosis. No evidence of pulmonary embolism. There was a incidental thyroid nodule which patient was notified about. 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 Patient was otherwise discharged home in stable condition, return precautions were discussed. Critical Care Critical Care Time Critical Care Time: No
--- NOTE | 2025-07-02 15:41 | PC.NURSE ---
ER at for pt carla; family at BS
--- NOTE | 2025-07-02 15:55 | CT_ITS ---
PROCEDURE INFORMATION: Exam: CT Head Without Contrast Exam date and time: 07/02/2025 5:08 PM Age: 55 years old Clinical indication: Syncope and collapse TECHNIQUE: Imaging protocol: Computed tomography of the head without contrast. Radiation optimization: All CT scans at this facility use at least one of these dose optimization techniques: automated exposure control; mA and/or kV adjustment per patient size (includes targeted exams where dose is matched to clinical indication); or iterative reconstruction. COMPARISON: CT ANGIO HEAD 04/26/2025 10:20 AM FINDINGS: Brain: Mild bilateral white matter hypodensities which are nonspecific but most commonly associated with chronic microvascular ischemia in this age group. The IACs are grossly normal. No extra-axial fluid collections. No evidence of acute intracranial hemorrhage. Cerebral/cerebellar giron-white matter differentiation is well maintained. No intracranial mass lesions. No midline shift or herniation. Cerebral ventricles: Ventricles normal. Pituitary gland and sella: The sella is grossly normal. Paranasal sinuses: Mild mucosal thickening in the left maxillary sinus suggesting mild chronic sinus inflammatory disease. No fluid levels. The other paranasal sinuses are clear. Mastoid air cells: Visualized mastoid air cells are clear. Orbital cavities: No acute intraorbital findings. Teeth: Dental caries. Bones: No acute osseous findings. 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 Soft tissues: No acute soft tissue findings. Nonspecific 7 mm subdermal nodule in the high right frontal scalp. Vasculature: Mild calcific atherosclerosis. No asymmetric vascular hyperdensities suggestive of thrombosis are identified. IMPRESSION: No acute intracranial process. No intracranial hemorrhage or mass effect.
--- NOTE | 2025-07-02 15:56 | XR_ITS ---
PROCEDURE INFORMATION: Exam: XR Chest Exam date and time: 07/02/2025 4:51 PM Age: 55 years old Clinical indication: Other: Syncope; Additional info: Syncope, smoker TECHNIQUE: Imaging protocol: Radiologic exam of the chest. Views: 2 views. COMPARISON: CT ANGIO CHEST 04/26/2025 10:24 AM FINDINGS: Lungs: Small dense 3 mm nodule within the left upper lung. This corresponds to a previously seen small calcified granuloma and is benign. No new airspace consolidation. No CHF. Lungs are minimally hyperexpanded. Pleural spaces: No pleural effusion. No pneumothorax. Heart/Mediastinum: Heart size is normal. The mediastinal contours are smooth. Bones/joints: [id number] scoliosis. Multilevel degenerative changes are present throughout the spine. IMPRESSION: No acute findings within the chest.
--- NOTE | 2025-07-02 16:04 | CT_ITS ---
PROCEDURE INFORMATION: Exam: CTA Neck With Contrast Exam date and time: 07/02/2025 5:08 PM Age: 55 years old Clinical indication: Syncope and collapse TECHNIQUE: Imaging protocol: Computed tomographic angiography of the neck with contrast. Exam focused on the cervical segments of the vasculature. 3D rendering (Not supervised by radiologist): MIP and/or 3D reconstructed images were created by the technologist. Radiation optimization: All CT scans at this facility use at least one of these dose optimization techniques: automated exposure control; mA and/or kV adjustment per patient size (includes targeted exams where dose is matched to clinical indication); or iterative reconstruction. Contrast material: ISOVUE 370; Contrast volume: 80 ml; Contrast route: INTRAVENOUS (IV); COMPARISON: CT ANGIO NECK 04/26/2025 10:20 AM FINDINGS: Right common carotid artery: Mild mid segment soft plaque. No stenosis. No dissection or occlusion. Right internal carotid artery: Mild calcific plaque in the right carotid bulb. No stenosis. No dissection or occlusion. Right external carotid artery: Mild proximal soft plaque. No stenosis. No dissection or occlusion. Left common carotid artery: Variant origin from the brachiocephalic artery. No stenosis. No dissection or occlusion. Left internal carotid artery: Mild-moderate mixed calcific plaque in the left carotid bulb. No stenosis. No dissection or occlusion. Left external carotid artery: Mild proximal soft plaque. No stenosis. No dissection or occlusion. Right vertebral artery: Mild V2 segment calcific plaque. No stenosis. No dissection or occlusion. Left vertebral artery: Minimal ostial calcific plaque. Mild V2 and V3 segment calcific plaque. No stenosis. No dissection or occlusion. Brachiocephalic artery: The brachiocephalic artery is unremarkable. Right subclavian artery: The right subclavian artery demonstrates mild calcific plaque without stenosis. Left subclavian artery: The left subclavian artery demonstrates mild calcific plaque without stenosis. Aorta: The visualized aortic arch demonstrates mild calcific plaque without evidence of dissection or gross aneurysm. Thyroid: 15 mm low-density nodule in the left thyroid lobe. Nonemergent thyroid ultrasound assessment recommended unless previously assessed. Soft tissues: Partially visualized 18 mm subcutaneous cystic lesion in the superomedial right anterior chest wall, most likely a small sebaceous cyst or inclusion epidermoid. No significant soft tissue swelling or hematoma. 6 mm nonspecific subdermal nodule in the left facial distribution. Bones/joints: No acute osseous abnormalities are identified. Moderate disc osteoarthritic changes C5-C6 with posterior spurring and moderate canal stenosis. Lungs: Moderate centrilobular emphysematous changes in the pulmonary apices. Granulomatous calcification in the right upper lobe. IMPRESSION: 1. No acute vascular abnormalities. No evidence of arterial occlusion or significant stenosis. 2. Nonemergent findings detailed above. COMMENTS: Consistent with the [employer]'s Incidental Findings Committee white paper (J Am Basil Radiol 2015): In patients aged 35 years and older with an incidental thyroid nodule equal to or greater than 1.[address], MRI or extrathyroidal US, further evaluation with dedicated thyroid US is recommended for patients with normal life expectancy and without comorbidities. For smaller nodules without suspicious features, no further evaluation or follow up is recommended. REFERENCES: NASCET CRITERIA. The degree of stenosis in the cervical segment of the internal carotid artery is based on NASCET criteria. Normal is no stenosis. Mild is less than 50% stenosis. Moderate is 50-69% stenosis. Severe is 70% to 99% stenosis. Total occlusion is no detectable patent lumen.
--- NOTE | 2025-07-02 16:04 | CT_ITS ---
PROCEDURE INFORMATION: Exam: CTA Head With Contrast, Arteriography Exam date and time: 07/02/2025 5:08 PM Age: 55 years old Clinical indication: Syncope and collapse TECHNIQUE: Imaging protocol: Computed tomographic angiography of the head with contrast. Exam focused on the arteries. 3D rendering (Not supervised by radiologist): MIP and/or 3D reconstructed images were created by the technologist. Radiation optimization: All CT scans at this facility use at least one of these dose optimization techniques: automated exposure control; mA and/or kV adjustment per patient size (includes targeted exams where dose is matched to clinical indication); or iterative reconstruction. Contrast material: ISOVUE 370; Contrast volume: 80 ml; Contrast route: INTRAVENOUS (IV); COMPARISON: CT ANGIO HEAD 04/26/2025 10:20 AM FINDINGS: ANTERIOR CIRCULATION: Right internal carotid artery: Right ICA petrous segment demonstrates minimal calcific plaque without stenosis. Cavernous segment and supraclinoid segment demonstrate mild calcific plaque without stenosis. Right middle cerebral artery: Unremarkable. No occlusion or significant stenosis. No aneurysm. Right anterior cerebral artery: Unremarkable. No occlusion or significant stenosis. No aneurysm. The anterior communicating artery is unremarkable. Left internal carotid artery: Left ICA petrous segment is unremarkable. Cavernous and supraclinoid segments demonstrate mild calcific plaque without stenosis. Left middle cerebral artery: Unremarkable. No occlusion or significant stenosis. No aneurysm. Left anterior cerebral artery: Unremarkable. No occlusion or significant stenosis. No aneurysm. POSTERIOR CIRCULATION: Right vertebral artery: Unremarkable. No occlusion or significant stenosis. No aneurysm. Left vertebral artery: Unremarkable. No occlusion or significant stenosis. No aneurysm. Basilar artery: Unremarkable. No occlusion or significant stenosis. No aneurysm. Right posterior cerebral artery: Normal variant persistent origin with mildly hypoplastic right P1 segment. No occlusion or significant stenosis. No aneurysm. Left posterior cerebral artery: Normal variant persistent origin with hypoplastic left P1 segment. No occlusion or significant stenosis. No aneurysm. Veins: The dural venous sinuses and major cortical veins enhance appropriately without evidence of thrombosis. Brain: No enhancing brain lesions or vascular malformations are identified. Cerebral ventricles: No ventriculomegaly. Bones/joints: Unremarkable. No acute fracture. Soft tissues: Unremarkable. IMPRESSION: No acute vascular abnormalities. No evidence of large vessel occlusion or significant stenosis.
[2025-07-02] MEDS: LACTATED RINGERS 1000ML 1,000 ML 999 ML IV (16:14)
[2025-07-02 16:48] LABS: D-Dimer 0.87 ug/mL (0.0-0.5)
--- NOTE | 2025-07-02 16:58 | CT_ITS ---
PROCEDURE INFORMATION: Exam: CTA Chest With Contrast Exam date and time: 07/02/2025 5:12 PM Age: 55 years old Clinical indication: Other: Syncope TECHNIQUE: Imaging protocol: Computed tomographic angiography of the chest with contrast. Exam focused on the arteries. 3D rendering (Not supervised by radiologist): MIP and/or 3D reconstructed images were created by the technologist. Radiation optimization: All CT scans at this facility use at least one of these dose optimization techniques: automated exposure control; mA and/or kV adjustment per patient size (includes targeted exams where dose is matched to clinical indication); or iterative reconstruction. Contrast material: ISOVUE 370; Contrast volume: 80 ml; Contrast route: INTRAVENOUS (IV); COMPARISON: CT ANGIO CHEST 04/26/2025 10:24 AM FINDINGS: Pulmonary arteries: The main pulmonary artery is normal in caliber. No CT evidence for central or segmental pulmonary embolism. Aorta: Normal caliber of the ascending and descending thoracic aorta. Minimal peripheral atherosclerotic plaque at the aortic arch and extending along the descending thoracic aorta. No evidence for dissection. Visualized portion of the upper abdominal aorta appears unremarkable. Thyroid: Small 8 mm nodule within the left lobe of the thyroid. Trachea: Trachea is midline in position. Central airways are clear. No significant bronchiectasis. Lungs: Centrilobular and paraseptal emphysematous changes are present bilaterally. 4 mm calcified granuloma within the right upper lobe. This is benign. No new suspicious pulmonary nodule or mass within the right or left lung. No new airspace consolidation. Pleural spaces: Unremarkable. No pneumothorax. No pleural effusion. Heart: Heart size is normal. No pericardial effusion. Scattered coronary artery calcifications are present. No pericardial effusion. Lymph nodes: There are no enlarged supraclavicular lymph nodes. There are scattered mildly prominent pretracheal and prevascular lymph nodes. Largest measures up to 8 mm in short axis. These are not enlarged by size criteria. No suspicious subcarinal lymphadenopathy or mass. There is fullness of the intrapulmonary lymphoid tissue at the right and left hilum. No suspicious hilar mass. No suspicious lymphadenopathy or mass within the upper abdomen. Diaphragm: Possible small hiatal hernia. Spleen: The spleen appears unremarkable. Adrenal glands: The adrenal glands are unremarkable. Kidneys: Small exophytic cyst along the posterior aspect of the upper pole of the left kidney. This is benign. Bones/joints: No suspicious lytic or sclerotic bone lesion. Mild degenerative changes are present throughout the spine. No acute fracture. Soft tissues: No axillary mass or lymphadenopathy. Timing of the contrast bolus limits evaluation of the visceral organs. Diffuse mild decreased density within the visualized portion of the liver likely corresponds to fatty infiltration. IMPRESSION: 1. The main pulmonary artery is normal in caliber. No CT evidence for central or segmental pulmonary embolism. 2. Heart size is within normal limits. No pericardial effusion. Normal caliber of the ascending and descending thoracic aorta. No evidence for dissection. 3. No pleural effusion. No pneumothorax. 4. Probable fatty liver. 5. No airspace consolidation. No suspicious pulmonary nodule or mass within the right or left lung. 6. 8 mm left thyroid nodule. COMMENTS: 1. Consistent with the [employer]'s Incidental Findings Committee white paper (J Am Basil Radiol 2015): In patients aged 35 years and older with an incidental thyroid nodule equal to or greater than 1.[address], MRI or extrathyroidal US, further evaluation with dedicated thyroid US is recommended for patients with normal life expectancy and without comorbidities. For smaller nodules without suspicious features, no further evaluation or follow up is recommended. 2. The presence of pulmonary emphysema on CT is an independent risk factor for lung cancer. In the absence of a history or active diagnosis of lung cancer, it is recommended that this patient with emphysema be evaluated for enrollment in a low dose CT lung cancer screening program.
[2025-07-02] MEDS: SODIUM CHLORIDE 0.9% 10ML SYR (RAD ONLY) 10 ML IV (17:09)
[2025-07-02] MEDS: 0.9 % SODIUM CHLORIDE 50 ML VIAL 100 ML IV (17:09)
[2025-07-02] MEDS: IOPAMIDOL-370 (76%);100ML BOTTLE 150 ML IV (17:09)
[2025-07-02 17:34] LABS: Troponin I < 0.01 ng/ml (0.00-0.034)
== END 2025-07-02 18:49 | disposition home or self-care (01) ==
PROVIDERS: Emergency Provider Student in an Organized Health Care Education/Training Program; PCP Nurse Practitioner Family
DX: R55 Syncope and collapse (principal); I25.10 Atherosclerotic heart disease of native coronary artery without angina pectoris; I73.9 Peripheral vascular disease, unspecified; I10 Essential (primary) hypertension; F17.200 Nicotine dependence, unspecified, uncomplicated
CPT/HCPCS: 70450; 70496; 70498; 71046; 71275; 80053; 82962; 84484; 85025; 85378; 93005; 96365; 99285; J7120; Q9967

== ENCOUNTER 2025-07-06 08:31 | Outpatient (CLI) | payer MEDICAID, SELFPAY ==
[2025-07-06 18:24] LABS: Chloride 97 mmol/L (98-107); Sodium 136 mmol/L (136-145)
[2025-07-06 18:25] LABS: Potassium 4.6 mmoL/L (3.5-5.1)
[2025-07-06 18:27] LABS: Blood Urea Nitrogen 13 mg/dl (7-17); Creatinine,Serum 0.90 mg/dl (0.52-1.04); Estimated Glomerular Filt Rate 65 ml/min (>60); GFR (African American) 78 ML/MIN (>60)
[2025-07-06 18:28] LABS: Anion Gap 14.6 mEq/L (5-15); Calcium 9.1 mg/dl (8.4-10.2); Carbon Dioxide 29 mmol/L (22.0-30.0); Glucose 77 mg/dl (74-100)
== END 2025-07-06 23:59 ==
LOC: LAB.DROPOF 07-08 08:32
PROVIDERS: PCP Nurse Practitioner Family; Visit Provider Nurse Practitioner Family
DX: N17.9 Acute kidney failure, unspecified (principal)
CPT/HCPCS: 80048

== ENCOUNTER 2025-07-08 09:58 | Outpatient (CLI) | payer MEDICAID, SELFPAY ==
[2025-07-08 10:33] LABS: Albumin Level 4.4 g/dl (3.5-5.0); Chloride 98 mmol/L (98-107)
[2025-07-08 10:34] LABS: Potassium 3.8 mmoL/L (3.5-5.1); Sodium 138 mmol/L (136-145)
[2025-07-08 10:36] LABS: Alanine Aminotransferase 16 U/L (12-78); Anion Gap 11.8 mEq/L (5-15); Aspartate Amino Transferase 26 U/L (14-36); Blood Urea Nitrogen 10 mg/dl (7-17); Carbon Dioxide 32 mmol/L (22.0-30.0); Creatinine,Serum 0.90 mg/dl (0.52-1.04); Estimated Glomerular Filt Rate 65 ml/min (>60); GFR (African American) 78 ML/MIN (>60)
[2025-07-08 10:37] LABS: Albumin/Globulin Ratio 1.3 (1.1-1.8); Alkaline Phosphatase 74 U/L (38-126); Bilirubin,Total 0.3 mg/dl (0.2-1.3); Calcium 9.2 mg/dl (8.4-10.2); Globulin 3.4 g/dL (1.3-3.2); Glucose 63 mg/dl (74-100); Total Protein,Serum 7.8 g/dl (6.3-8.2)
== END 2025-07-08 23:59 | disposition home or self-care (01) ==
LOC: LAB 09:59
PROVIDERS: PCP Nurse Practitioner Family; Visit Provider Internal Medicine
DX: I25.10 Atherosclerotic heart disease of native coronary artery without angina pectoris (principal)
CPT/HCPCS: 36415; 80053

== ENCOUNTER 2025-07-13 09:48 | Outpatient (CLI) | payer MEDICAID, SELFPAY ==
[2025-07-13] MEDS: ALBUTEROL 0.083% 2.5 MG/3 ML NEB IH (10:47)
== END 2025-07-13 23:59 | disposition home or self-care (01) ==
LOC: RT 09:49
PROVIDERS: PCP Nurse Practitioner Family; Visit Provider Nurse Practitioner Family
DX: J44.9 Chronic obstructive pulmonary disease, unspecified (principal)
CPT/HCPCS: 94010